=== PATIENT | female | born 1950 | race Caucasian/White ===

== ENCOUNTER 2017-12-13 12:08 | Emergency (ER) | payer MEDICARE ==
--- NOTE | 2017-12-13 14:00 | RAD ---
HISTORY: Fall, second toe pain COMPARISONS: January 19, 2012 VIEWS: 3, Frontal, lateral, and oblique views of the left foot FINDINGS: BONE DENSITY: There is diffuse osteopenia. BONES: There is no displaced fracture. There is postsurgical change to the head of the second metatarsal. JOINTS: There is advanced osteoarthrosis of the first MTP joint and third MTP joint with osteoporosis of the interphalangeal joints. ALIGNMENT: There is no dislocation. SOFT TISSUES: There is soft tissue swelling of the forefoot. OTHER FINDINGS: None. IMPRESSION: 1. OSTEOPENIA. 2. OSTEOARTHRITIS. 3. NO ACUTE OSSEOUS INJURY. THE DEGREE OF OSTEOPENIA MAY MAKE A NONDISPLACED FRACTURE RADIOGRAPHICALLY OCCULT. IF SYMPTOMS PERSIST, RECOMMEND REPEAT IMAGING.
[2017-12-13 14:57] VITALS: BP 157/84
--- NOTE | 2017-12-13 18:20 | ED ---
Lower Extremity - HPI Summary HPI Summary: Patient is a 67-year-old female who presents emergency department for left foot pain times one week. Patient states she fell and twisted her foot about 8 days ago and has had pain since. She also notes some redness and swelling to her left foot. No associated symptoms of fever, chills, nausea, vomiting. Denies history of gout. Symptoms are mild in severity. Touching the affected area makes symptoms worse. Rest makes symptoms better. - History of Current Complaint Chief Complaint: EDExtremityLower Stated Complaint: LT FOOT INJURY Time Seen by Provider: 12/13/17 12:51 Hx Obtained From: Patient, Family/Pet Caretaker Pain Intensity: 7 Pain Scale Used: 0-10 Numeric - Allergies/Home Medications Allergies/Adverse Reactions: Allergies Allergy/AdvReac Type Severity Reaction Status Date / Time bee venom protein (honey bee) Allergy Anaphylatic Verified 12/13/17 12:33 Shock cephalexin [From Keflex] Allergy Swelling Verified 12/13/17 12:33 phenobarbital Allergy Swelling Verified 12/13/17 12:33 phenytoin [From Dilantin] Allergy Anaphylatic Verified 12/13/17 12:33 Shock PMH/Surg Hx/FS Hx/Imm Hx Previously Healthy: Yes Respiratory History: Reports: Hx Asthma, Hx Chronic Obstructive Pulmonary Disease (COPD) Musculoskeletal History: Reports: Hx Back Problems, Other Musculoskeletal History - surgeries to foot Sensory History: Reports: Hx Contacts or Glasses - not with her Opthamlomology History: Reports: Hx Contacts or Glasses - not with her Neurological History: Reports: Hx Seizures, Other Neuro Impairments/Disorders - brain aneurysm, post clipping, back surgeries Psychiatric History: Reports: Other Psychiatric Issues/Disorders - OCD - Surgical History Surgery Procedure, Year, and Place: brain aneurysm . back and foot surgery Infectious Disease History: No Infectious Disease History: Denies: Traveled Outside the [place] in Last 30 Days - Family History Family History: NON CONTRIBUTORY - Social History Occupation: Disabled Lives: With Family Alcohol Use: Occasionally Alcohol Amount: states 2 beers/day Substance Use Type: Reports: None Smoking Status (MU): Heavy Every Day Tobacco Smoker Type: Cigarettes Amount Used/How Often: states 1 pk/day, started at age 14 Review of Systems Constitutional: Negative Negative: Fever, Chills Positive: Other - left foot pain, redness and swelling All Other Systems Reviewed And Are Negative: Yes Physical Exam Triage Information Reviewed: Yes Vital Signs On Initial Exam: Initial Vitals Temp Pulse Resp BP Pulse Ox 97.4 F 87 18 149/66 95 12/13/17 12:13 12/13/17 12:13 12/13/17 12:13 12/13/17 12:13 12/13/17 12:13 Vital Signs Reviewed: Yes Appearance: Positive: Well-Appearing - Patient sitting on chair no acute distress. Daughter present. Skin: Positive: Warm, Dry Head/Face: Positive: Normal Head/Face Inspection Eyes: Positive: Normal, EOMI Neck: Positive: Supple Musculoskeletal: Positive: Other - Mild diffuse edema noted to the dorsum of the left foot with light erythema over the lateral aspect. Painful to palpation. No calf pain or swelling. No proximal knee pain. Full range of motion at the ankle. No overlying wounds, induration, ulcerations foot. Neurological: Positive: Normal, CN Intact II-III Psychiatric: Positive: Affect/Mood Appropriate Diagnostics - Vital Signs Vital Signs Temp Pulse Resp BP Pulse Ox 12/13/17 14:56 98.8 F 75 16 157/84 97 12/13/17 12:13 97.4 F 87 18 149/66 95 - Laboratory Lab Statement: Any lab studies that have been ordered have been reviewed, and results considered in the medical decision making process. Lower Extremity Course/Dx - Course Course Of Treatment: Patient presenting to the evaluation of the foot injury that occurred about one week ago. X-ray shows arthritic changes without definitive fracture, reading per radiology. On exam she does appear to have a mild cellulitis to her foot. Will start on Keflex. Advised to elevate and apply warm compresses to foot. Close follow-up with PCP for recheck. To return to the ER for increased redness, swelling, pain, fever, vomiting. Patient understands and agrees with plan. - Diagnoses Differential Diagnosis/HQI/PQRI: Positive: Arthritis, Burn, Bursitis, Cellulitis , Fracture (Closed), Gout, Sprain, Strain Provider Diagnoses: Cellulitis Discharge - Sign-Out/Discharge Documenting (check all that apply): Patient Departure - Discharge Plan Condition: Good Disposition: HOME Prescriptions: Amoxicillin/Clavulanate TAB* [Augmentin TAB 875*] 875 mg PO BID #20 tab Patient Education Materials: Cellulitis (ED) Referrals: Cody Arias MD [Primary Care Provider] - Additional Instructions: Call your PCP tomorrow to schedule a follow up appointment Take antibiotic as directed Elevated foot and apply warm compresses Return to ER for increased pain, fever, redness, increased pain - Billing Disposition and Condition Condition: GOOD Disposition: Home
== END 2017-12-13 14:55 | disposition home or self-care (01) ==
LOC: ED 12:08
DX: L03.116 Cellulitis of left lower limb (principal); Z88.8 Allergy status to other drugs, medicaments and biological substances; Z88.1 Allergy status to other antibiotic agents; Z91.030 Bee allergy status; F17.210 Nicotine dependence, cigarettes, uncomplicated
CPT/HCPCS: 99282

== ENCOUNTER 2018-03-17 10:30 | Observation (INO) | payer MEDICARE ==
[2018-03-17] MEDS ORDERED: NS 0.9% 1000 ML* 1,000 ML IV ONE (10:32)
--- NOTE | 2018-03-17 10:37 | ED ---
Neurological HPI - HPI Summary HPI Summary: Pt is a 67 y/o female brought in by EMS who presents to the ED s/p witnessed seizure. As per EMS, she has a seizure history and recently has been having more than usual. Pt was here 2 days ago with a seizure. As per son, she had a seizure in the bathroom, where she fell into the bathtub. Pt was able to ambulate after. As per EMS, pt was not alert afterwards. She does not want to be in the hospital and is upset. She denies any head injury, LOC, AVALOS, or dizziness. Pt took 2 Seroquil pills this morning, but hasnt normally been taking it recently. Pt is on Tegretol for her seizures. She denies any alcohol use. Pt is a level 5 caveat due to her post-ictal state. - History of Current Complaint Stated Complaint: AMS Hx Obtained From: Patient, Family/Tankerman - Son, EMS Onset/Duration: Sudden Onset, Started hours ago, Resolved Neurological Deficit Location: Generalized Pain Intensity: 0 Pain Scale Used: 0-10 Numeric Syncope Context: Witnessed Alleviating: Spontanious Resolution Related Hx: Seizure - Allergy/Home Medications Allergies/Adverse Reactions: Allergies Allergy/AdvReac Type Severity Reaction Status Date / Time bee venom protein (honey bee) Allergy Anaphylatic Verified 03/17/18 10:36 Shock cephalexin [From Keflex] Allergy Swelling Verified 03/17/18 10:36 phenobarbital Allergy Swelling Verified 03/17/18 10:36 phenytoin [From Dilantin] Allergy Anaphylatic Verified 03/17/18 10:36 Shock Home Medications: Home Medications ALPRAZolam TAB* [Xanax TAB*] 0.25 mg PO TID PRN 03/17/18 [History Confirmed ] Amitriptyline TAB* [Elavil TAB*] 100 - 200 mg PO BEDTIME MDD 200 mg 03/17/18 [ History Confirmed 03/17/18] EPINEPHrine [Epipen] 0.3 mg IM ONCE PRN 03/17/18 [History Confirmed 03/17/18] Mirtazapine TAB* [Remeron TAB*] 15 mg PO BEDTIME PRN 03/17/18 [History Confirmed 03/17/18] Naproxen [Naproxen 375 mg tab] 375 mg PO BID WITH MEALS 03/17/18 [History Confirmed 03/17/18] QUEtiapine TAB* [Seroquel 300 MG TAB*] 400 mg PO BEDTIME 03/17/18 [History Confirmed 03/17/18] tiZANidine TAB* [Zanaflex TAB*] 2 mg PO TID PRN 03/17/18 [History Confirmed ] PMH/Surg Hx/FS Hx/Imm Hx Endocrine/Hematology History: Denies: Hx Sickle Cell Disease Cardiovascular History: Reports: Hx Aneurysm - brain, 1989 Denies: Hx Hypertension, Hx Myocardial Infarction Respiratory History: Reports: Hx Asthma, Hx Chronic Obstructive Pulmonary Disease (COPD) Musculoskeletal History: Reports: Hx Back Problems, Other Musculoskeletal History - surgeries to foot Sensory History: Reports: Hx Contacts or Glasses - not with her Opthamlomology History: Reports: Hx Contacts or Glasses - not with her Neurological History: Reports: Hx Seizures, Other Neuro Impairments/Disorders - brain aneurysm, post clipping, back surgeries Psychiatric History: Reports: Other Psychiatric Issues/Disorders - OCD - Surgical History Surgery Procedure, Year, and Place: brain aneurysm . back and foot surgery Infectious Disease History: No Infectious Disease History: Denies: Traveled Outside the [place] in Last 30 Days - Family History Known Family History: Positive: Cardiac Disease - Social History Alcohol Use: Daily Alcohol Amount: states 2 beers/day Hx Substance Use: No Substance Use Type: Reports: None Hx Tobacco Use: Yes Smoking Status (MU): Heavy Every Day Tobacco Smoker Type: Cigarettes Amount Used/How Often: states 1 pk/day, started at age 14 Review of Systems Negative: Fever Neurological: Other - seizure, NEGATIVE: dizziness Negative: Headache All Other Systems Reviewed And Are Negative: No Physical Exam - Summary Physical Exam Summary: Appearance: Well appearing, no pain distress Skin: warm, dry, reflects adequate perfusion Head/face: normal Eyes: EOMI, LOCO ENT: mucous membranes moist, no tongue injuries Neck: supple, non-tender Respiratory: CTA, breath sounds present Cardiovascular: RRR, pulses symmetrical Abdomen: non-tender, soft, no incontinence Bowel Sounds: present Musculoskeletal: normal, strength/ROM intact Neuro: confusion, sensory motor intact, alert and oriented to person GCS: 14 Triage Information Reviewed: Yes Vital Signs On Initial Exam: Initial Vitals Temp Pulse Resp BP Pulse Ox 98.4 F 80 16 159/80 95 03/17/18 10:33 03/17/18 10:33 03/17/18 10:33 03/17/18 10:33 03/17/18 10:33 Vital Signs Reviewed: Yes Diagnostics - Vital Signs Vital Signs Temp Pulse Resp BP Pulse Ox 03/17/18 10:33 98.4 F 80 16 159/80 95 - Laboratory Result Diagrams: 03/17/18 10:41 03/17/18 10:40 Lab Statement: Any lab studies that have been ordered have been reviewed, and results considered in the medical decision making process. - CT Brain CT CT Interpretation Completed By: Radiologist - 1. NO ACUTE INTRACRANIAL PATHOLOGY. 2. EVIDENCE OF CRANIOTOMY WITH PREVIOUS ANEURYSM REPAIR. ED physician reviewed radiology report. - EKG 11:12 Cardiac Rate: NL - 76 bpm EKG Rhythm: Sinus Rhythm ST Segment: Normal Summary of EKG Findings: Nl axis, nl intervals 11:17 Cardiac Rate: NL - 70 bpm EKG Rhythm: Sinus Rhythm ST Segment: Normal Summary of EKG Findings: Nl axis, nl intervals NIH Scale - NIH Scale Level of Consciousness: Alert/Keenly Responsive Ask Patient the Month and His/Her Age: Neither Correct/Aphasic Ask Pt to Open/Close Eyes and Brim Raiser/Release Non-Paretic Hand: Both Correctly Best Gaze (Only Horizontal Eye Movement): Normal Visual Field Testing: No Visual Loss Facial Paresis-Pt to Smile & Close Eyes or Grimace Symmetry: Normal/Symmetrical Motor Function - Right Arm: No Drift-Holds 10 Seconds Motor Function - Left Arm: No Drift-Holds 10 Seconds Motor Function - Right Leg: No Drift-Holds 10 Seconds Motor Function - Left Leg: No Drift-Holds 10 Seconds Limb Ataxia-Must be out of Proportion to Weakness Present: Absent Sensory (Use Pinprick to Test Arms/Legs/Trunk/Face): Normal Best Language (Describe Picture, Name Items): No Aphasia Dysarthria (Read Several Words): Normal Extinction and Inattention: No Abnormality Total Score: 2 Course/Dx - Course Course Of Treatment: Patient with a history of seizures which seemed to have increased in frequency lately. She has had prolonged postictal phases. She remains ictal here. The only medication listed for possible seizures Tegretol. A level was obtained. I discussed the case with neurology and loaded the patient with YR Free. An EEG was performed here. They have elected to admit the patient for further. - Differential Dx Differential Diagnoses Neuro: Positive: Hemorrhage, Metabolic Abnormality, Seizure Disorder - Diagnoses Provider Diagnoses: Generalized epilepsy - Physician Notifications Discussed Care Of Patient With: Nik Grant Time Discussed With Above Provider: 11:18 Instructed by Provider To: Other - Dr. Grant said to admit the pt. At 11:[address] Arguello, who is not accepting the pt for admission yet, as per Dr. Grant's advise. At 12:00 Dr. Arguello accepts pt for admission. Discharge - Sign-Out/Discharge Documenting (check all that apply): Patient Departure - Admit - Discharge Plan Condition: Stable Disposition: ADMITTED TO [facility] - Billing Disposition and Condition Condition: STABLE Disposition: Admitted to [facility] - Attestation Statements Document Initiated by Khanhibe: Yes Documenting Scribe: Alexandria Rose Provider For Whom Khanhibe is Documenting (Include Credential): Sam Butler MD Scribe Attestation: IAlexandria, scribed for Sam Butler MD on 03/17/18 at 1800. Scribe Documentation Reviewed: Yes Provider Attestation: The documentation as recorded by the Alexandria ortiz accurately reflects the service I personally performed and the decisions made by me, Sam Butler MD
[2018-03-17] MEDS ORDERED: levETIRAcetam IV* 1,000 MG in NS 0.9% 100 ML* 100 ML IVPB ONE (10:38)
[2018-03-17 10:53] LABS: ABS Basophils 0 10^3/ul (0-0.2); ABS Eosinophils 0.3 10^3/ul (0-0.6); ABS Lymphocytes 1.1 10^3/ul (1.0-4.8); ABS Monocytes 0.5 10^3/ul (0-0.8); ABS Neutrophils 7.3 10^3/ul (1.5-7.7); ABS Nucleated RBC 0 10^3/ul; Eosinophil % 3.7 % (0-6); Hematocrit 39 % (35-47); Hemoglobin 13.5 g/dl (12.0-16.0); Lymphocyte % 12.2 % (25-47); Mean Corpuscular HGB Conc 35 g/dl (31-36); Mean Corpuscular Hemoglobin 33 pg (27-31); Mean Corpuscular Volume 94 fL (80-97); Mean Platelet Volume 7.3 fL (7.4-10.4); Nucleated Red Blood Cells % 0; Platelet Count 257 10^3/ul (150-450); Red Blood Count 4.13 10^6/ul (4.00-5.40); Red Cell Distribution Width 14 % (10.5-15); White Blood Count 9.2 10^3/ul (3.5-10.8)
[2018-03-17 11:00] LABS: INR 0.92 (0.77-1.02)
[2018-03-17 11:13] LABS: EGFR Non-African American 86.6 (>60)
[2018-03-17] MEDS ORDERED: Mirtazapine TAB* 15 MG PO PRN (14:04)
[2018-03-17] MEDS ORDERED: Albuterol HFA INHALER* 8 gm MDI INH PRN (14:04)
[2018-03-17] MEDS ORDERED: ALPRAZolam TAB* 0.25 MG PO PRN (14:13)
[2018-03-17] MEDS ORDERED: tiZANidine TAB* 2 MG PO PRN (14:14)
[2018-03-17] MEDS ORDERED: Mouth Piece, Nicotine* 1 EACH CARTRIDGE INH ONE (15:00)
[2018-03-17] MEDS: Heparin VIAL(*) 5000 UNITS/ML VIAL (FIVE THOUSAND) SUBCUT SCH ×2 (15:59→22:13)
[2018-03-17] MEDS: Nicotine Inhaler* 10 MG AMP INH PRN (15:59)
[2018-03-17 16:06] LABS: Urine Appearance Cloudy; Urine Blood 2+ (Negative); Urine Color Amber; Urine Ketones Trace (Negative); Urine Protein Negative (Negative); Urine Red Blood Cell 2+(6-10/hpf) (Absent); Urine Specific Gravity 1.019 (1.010-1.030); Urine Urobilinogen Negative (Negative); Urine White Blood Cell 2+(11-20/hpf) (Absent)
--- NOTE | 2018-03-17 18:44 | CONS ---
NEUROLOGY CONSULTATION NOTE: DATE OF CONSULT: 03/17/18 CONSULTING PROVIDER: Sam Butler MD REASON FOR CONSULT: Neurology was consulted by Dr. Sam Butler at 11:17 a.m. to evaluate the patient for new-onset seizures. Upon review of the history, the patient has longstanding history of epilepsy. I informed Dr. Arguello to hold off on the admission until further evaluated by myself to make sure the patient is not in non-convulsive status epilepticus and may require higher level of care. After my evaluation, Dr. Arguello was then contacted at 1300 to proceed with the admission. CHIEF COMPLAINT: Confusion. HISTORY OF PRESENT ILLNESS: Ms. Jessi Disla is a 67-year-old female with history of cerebral aneurysm presumably in the right MCA, status post right metal clips in 1989 at [facility] by Dr. Egan, who has had history of epilepsy since as early as 2013. The patient was extensively evaluated by Dr. Herrera in 2014, who recommended switching her from Keppra to Tegretol to prevent any psychiatric exacerbation related to Keppra given her history of depression and OCD. The patient's family stated that Ms. Disla has been doing well since then and has not had any recurrent seizures until recently. The history was mostly obtained by the patient's daughter, Xochilt, who unfortunately was hospitalized at [facility] and currently in the ICU and just recently was extubated this morning. Xochilt was still able to provide me with history over the phone. I also obtained history from Xochilt's partner, who was at bedside with Ms. Disla. According to EMS, there was documentation that the patient may have taken double dose of Seroquel this morning. She typically takes 400 mg daily. . According to Xochilt's partner, the patient woke up at approximately 7:30 a.m. She went to the bathroom. He knew something was off when she did not close the door after going into bathroom. She got off the toilet and then went into the bathtub where she fell. She did hit her head. She never lost consciousness. She was confused. She was disoriented with time and location. She kept repeating herself. She was last seen normal actually by our area intelligence technician last night at approximately 2200 when the patient was with her daughter Xochilt in the ICU. There were no reported convulsions. There was no tongue biting or urinary/bowel incontinence. The patient had a similar episode of confusion on 03/15/18 where she was brought in the ER. At that time, her carbamazepine level was checked and it was less than 2. According to Xochilt, the patient has been excessively sleeping over the last 3 days and that may have triggered her to forget taking her carbamazepine. Currently, the patient is disoriented, but follows commands. She is concerned about her daughter, who is in the ICU. I reviewed the [employer] where the patient did not have any encounters. She is clearly not following with any neurologists. She apparently saw Dr. Hensley in the past, but stopped following up, but I do not have any records of that. She used to take phenobarbital and phenytoin, but stopped due to an allergic reaction. At baseline, the patient is extremely sharp and her memory is intact. She has not operated a vehicle for years since her last DUI. She used to be a heavy drinker for over 20 years, but over the last few years she consumes alcohol mostly in the beginning of the month, at max 4 beers a day for a few days. Otherwise, she drinks 1-2 times a week. There is no history of drug use. The patient does live alone. She had a CT of the head without contrast completed on 03/17/18. There was no evidence of acute intracranial abnormalities on this CT. There is evidence of craniotomy with previous aneurysm repair on the right. There are aneurysm clips noted in the region of the sylvian fissure and prepontine cistern. Laboratory data: WBC 9.2, hemoglobin 13.5, hematocrit 39, platelet count 257. INR 0.92. Sodium 138, potassium 4.1, chloride 109, carbon dioxide 24, anion gap is 5, BUN of 22, creatinine of 0.68, lactic acid 0.5, magnesium 2.0. Alkaline phosphatase 129. TSH is 1.74. Carbamazepine level 9. Serum alcohol less than 10. According to Xochilt's partner, the patient is still the same as she was found this morning. She did not improve with the Keppra loading dose that was given in the ED, 1000 mg IV x1. The patient is still confused and disoriented. A stat EEG was ordered. PAST MEDICAL HISTORY: Aneurysm clipping, the clippings are not MRI compatible according to Xochilt; OCD; anxiety; depression; GERD; insomnia; and seizures. The patient also has headaches as well as muscle spasms. The patient has history of COPD. She quit smoking years ago. PAST SURGICAL HISTORY: Back surgery, foot surgery, carpal tunnel repair. She has history of breast biopsy and hysterectomy. FAMILY HISTORY: Her mother from a motor vehicle accident. Her father of a heart attack. She has a sister and a brother, who both suffer from cerebral aneurysms, one of them passed due to subarachnoid hemorrhage. SOCIAL HISTORY: The patient reported cessation of tobacco use just over the last 2 years, but she did smoke approximately half-a-pack a day for over 50 years. She lives alone. Her surrogate decision maker is her daughter. REVIEW OF SYSTEMS: Limited due to the patient's cooperation, but a 14-point review of systems was obtained and otherwise negative except for as mentioned in the HPI. PHYSICAL EXAM: Vitals: Temperature 98.7, pulse of 75, respirations of 16, oxygen saturation of 95%, blood pressure of 164/80. General: Disheveled appearing elderly female, who appears older than stated age, who is confused. Head: Normocephalic, atraumatic. Eyes: Conjunctivae/corneas are clear. Neck is supple and symmetrical with no carotid bruits. Negative Brudzinski and Kernig signs bilaterally. No nuchal rigidity. Lungs: She has expiratory wheezing in bibasilar area. Nonlabored breathing though. Cardiovascular: Regular rate and rhythm with normal S1, S2. Extremities: Normal range of motion with no cyanosis. She has toe deformities in the left with hammertoe on the left great toe. Skin: No skin lesions or lacerations. Psych: Affect is broad and normal mood. Due to the confusion, she is difficult to establish a rapport. Neurological Examination: Mental Status: Awake, alert, and oriented to person, but not place or time. She has some mild perseverative speech. She has psychomotor slowing. She thinks the president is Richard. She was unable to tell me where she is, but knew that she is in the hospital and she kept repeating she is in [facility]. Cranial Nerves: Normal confrontation testing bilaterally. Pupils are mid range and reactive to light. Sensation is intact on the forehead, cheeks, and jaw region. She has no facial droop or facial asymmetry. She is able to hear throughout the history process. Symmetrical palatal elevation. Normal strength against resistance. Tongue is symmetrical and midline with no atrophy or fasciculation. Motor: No abnormal movements. No pronator drift. She can move all 4 extremities to command symmetrically. Reflexes: Right/left, brachioradialis trace/trace, biceps trace/trace, triceps trace/trace, patella absent/absent, ankle absent/absent, plantar flexor/flexor. Sensation is intact to light touch, pinprick, and temperature throughout except for she has a distal to proximal sensory gradient demarcated at the mid shins bilaterally. She has significantly reduced vibration at 4 seconds on the right and 5 seconds on the left, although I am not quite sure how accurate that is given her disorientation. The proprioception at the great toes is intact. Coordination: Slow, but normal [id number] testing. Gait was not assessed due to mentation. ASSESSMENT AND RECOMMENDATIONS: Ms. Jessi Disla is a 67-year-old female with history of cerebral aneurysm, status post clipping in 1989, who has diagnosis of depression, obsessive-compulsive disorder, headaches, and seizures. She was last seen prior to this month in December of [address] Herrera for breakthrough seizures, but that was related to medication noncompliance. She was seen in the ED recently 2 days ago for a breakthrough seizure and her carbamazepine level was less than 2. She was provided with carbamazepine and was discharged home, but presents today with increasing confusion. Carbamazepine level is therapeutic. The patient was loaded with levetiracetam with no significant improvement in her confusion. 1. Acute encephalopathy manifesting as hypoactive delirium - I suspect this is related to a toxic encephalopathy given her list of medications, which includes Xanax, tizanidine, mirtazapine, amitriptyline which she takes 200 mg at bedtime , oxycodone, and quetiapine for which she may have taken 2 doses this morning. I am not quite sure where this history was obtained from in regards to the double dose of quetiapine, but this is what was presented by EMS. However, complex partial seizures leading to a postictal state cannot be entirely excluded. I was mainly concerned about possible nonconvulsive seizures and therefore I ordered a stat EEG. The study is currently being done in the ER. 2. 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 I recommend continuing the same home dose of carbamazepine 200 mg p.o. twice daily until we obtain a repeat trough level. She will most likely require an increase dose of carbamazepine 200 mg in the morning and 400 mg at night. I would not continue the Keppra at this point given her increase of mood disturbances that can be related to the side effects of Keppra. 3. Polypharmacy - we will need to either consult with Psychiatry or discuss her medication list with her primary care provider or a prescribing physician. In someone with seizures, amitriptyline can definitely lower the seizure threshold. In addition, out of all the tricyclics, amitriptyline is said to have the most anticholinergic side effects and to be the most likely to produce delirium. Therefore, I recommend decreasing the dose to 100 mg for now and to slowly wean her off this medication as an outpatient. In addition, we can most likely continue the quetiapine dose starting tomorrow since she may have taken an extra dose. An EKG today showed a normal sinus rhythm with a QTc of 449. There has been a slight prolongation in the QTc from the EKG obtained 2 days ago. Defer further management to the primary team. I do not suspect the patient has any infectious or electrolyte imbalance contributing to her symptoms. She does not have any lateralizing neurological deficits to suspect a stroke. She cannot undergo any MRI testing, but if her symptoms persist, I recommend repeating a CT head without contrast to evaluate for any intracranial abnormalities. Please also obtain a urinalysis to evaluate for any urinary tract infection. Dr. Rica Mcneal will be covering the neurology service starting tomorrow. I will sign out to her today. TIME SPENT: I spent a total of 75 minutes and greater than 50% was spent directly reviewing the medical chart, obtaining history, examining the patient, education and counseling, and discussing the treatment plan with the patient, her daughter Xochilt, and Xochilt's partner. I also discussed these recommendations with Dr. Arguello. [id number]/[facility] #: [id number] PHILLY
--- NOTE | 2018-03-17 19:34 | HP ---
CC: Dr. Arias * [facility] MEDICINE HISTORY AND PHYSICAL: DATE OF ADMISSION: 03/17/18 PRIMARY CARE PHYSICIAN: Dr. Arias. ATTENDING PHYSICIAN: Oma Arguello MD * (dictation provided by Bisi Templeton NP ). CHIEF COMPLAINT: Altered mental status, question seizure. HISTORY OF PRESENT ILLNESS: Ms. Disla is a 67-year-old female with a past medical history of seizure disorder; depression; chronic back pain, on chronic narcotic therapy; brain aneurysm, status post clipping; and COPD with continued smoking, who presents to the hospital today with concern for altered mental status and possible seizure. Ms. Disla continues to have some confusion and is not able to provide much in the way of detail for the H and P and this was provided from her son-in- law, who is at the bedside today. Per the report, Ms. Disla normally lives alone, but she has been staying with the son-in-law since her daughter is ill and in the hospital. The patient was seen to be normal yesterday; however, this morning on awaking, the son-in-law noticed that she was confused and that she seemed to have a hard time answering questions. He saw her in the bathroom with the door open which is very unusual for her, she seemed confused and at one point fell. He notes that a couple of days ago he saw her seeming to be having a seizure. There was no tremor or shaking noted , but he did say that the patient was repeatedly saying the word "mamma". He also noted that she was doing that again this morning and that made him question whether or not possibly she was having a seizure. The patient was transported to the hospital via EMS. There is no report of other complaints recently from either the patient or the son-in-law. No report of fever, chills , chest pain, shortness of breath, cough, nausea, vomiting, diarrhea, abdominal pain. There is report from EMS that at the time of their arrival, there was a question of whether or not the patient had taken an extra dose of her quetiapine accidentally. Of note, the patient was also seen in the emergency room on 03/15/18 with concern for altered mental status and possible seizures but this was not mentioned by the son-in-law during my interview. In the emergency room, Ms. Disla had a CT brain, which showed no acute abnormality. Her labs were unremarkable with no evidence of infection or metabolic abnormality. Vital signs were stable. Although she improved in terms of her mentation and was able to name the president, she remained confused and plans are for observation in the hospital. PAST MEDICAL HISTORY: 1. Depression. 2. Seizure disorder. 3. History of brain aneurysm with clippings x2. 4. OCD. 5. History of COPD. 6. GERD. PAST SURGICAL HISTORY: 1. History of back surgery. 2. History of a foot surgery. 3. Carpal tunnel surgery. 4. History of brain aneurysm clippings x2. 5. History of breast biopsy. 6. History of hysterectomy. MEDICATIONS: 1. Quetiapine 400 mg p.o. at bedtime. 2. Carbamazepine ER 200 mg p.o. b.i.d. 3. Desvenlafaxine 50 mg p.o. daily. 4. Epinephrine 0.3 mg IM as needed. 5. Amitriptyline 100 to 200 mg p.o. at bedtime. 6. Tizanidine 2 mg p.o. t.i.d. p.r.n. 7. Alprazolam 0.25 mg p.o. t.i.d. p.r.n. 8. Albuterol inhaler 2 puffs inhaled q.4 hours p.r.n. 9. Oxycodone SR 40 mg p.o. b.i.d. 10. Omeprazole 40 mg p.o. daily. 11. Mirtazapine 15 mg p.o. b.i.d. p.r.n. 12. Naproxen 375 mg p.o. b.i.d. with meals. ALLERGIES: To BEE VENOM, CEPHALEXIN, PHENOBARBITAL, and PHENYTOIN. FAMILY HISTORY: There is report that mother related to MVA and father related to heart attack. SOCIAL HISTORY: The patient is a continued long-term smoker. She reports she drinks about 3 to 4 beers per night. No report of drug use. She lives alone, but her daughter, Xochilt, will be the healthcare proxy. REVIEW OF SYSTEMS: A 14-point review of systems was attempted with Ms. Disla and at this point, all those not mentioned above were negative. PHYSICAL EXAMINATION GENERAL: Ms. Disla is lying in the bed. Her son-in-law is at the bedside. She is in no acute distress. VITAL SIGNS: Temperature 98.7, pulse rate 75, respiratory rate 16, O2 saturation 95% on room air, blood pressure 164/80. LUNGS: Clear to auscultation bilaterally with no accessory muscle use and good aeration. HEART: S1, S2. No murmur, rub, or gallop and regular. ABDOMEN: Soft, nontender with bowel sounds positive x4. EXTREMITIES: No cyanosis or edema. NEURO: She is alert. She appears hesitant or quiet in terms of answering questions, but is able to answer most of them appropriately. She is oriented x3. She states she is at [facility] and that Andreas Boucher is our president and then she states "I hate Sander." She moves all extremities equally. There is no facial asymmetry or focal weakness. Extraocular movements are intact. There is no ataxia noted with upper or lower extremities. SKIN: Intact. DIAGNOSTIC STUDIES/LAB DATA: WBC 9.2, hemoglobin 13.5, hematocrit 39, platelet count 257,000. INR 0.92. Sodium 138, potassium 4.1, chloride 109, serum bicarbonate 24, BUN 22, creatinine 0.68, glucose 123, lactic acid 0.5. TSH 1.74. Serum alcohol level is less than 10. Carbamazepine level is 9.0. EKG shows sinus rhythm with heart rate about 70 and no evidence of ischemia. The CT of the brain is read as follows: "No acute intracranial pathology. Evidence of craniotomy with previous aneurysm repair." ASSESSMENT AND PLAN: Ms. Disla is a 67-year-old female with a past medical history of chronic pain, on narcotic therapy; depression; seizure disorder with history of craniotomy for aneurysm clipping, who presents today to the hospital with concern for altered mental status. Our plans are for observation in the hospital for the followin. Altered mental status. This may be related to being in a post-ictal state. The patient has report of possible seizures at home. I did get a verbal report from Dr. Grant that EEG obtained in the ED does not show epileptiform discharges. Dr. Grant had recommended Keppra x1 in the ED, but he does not at this point want to continue with that because he feels that uncontrolled seizures are less likely than possible toxic metabolic encephalopathy related to her polypharmacy. In terms of that, I do agree that she is on multiple high dose agents that could contribute to her altered mental status and our plans will be to make an attempt to decrease the tizanidine and amitriptyline with recommendations to continue to wean down these medications as appropriate outpatient. I am also planning to hold her dose of Seroquel tonight as there is a question of whether or not she took 2 doses this morning accidentally. She shows no evidence of infection. Transient ischemic attack could be on the differential for this patient, but seems less likely. She has had no evidence and no report of neurological deficit, but we will monitor on telemetry. MRI is not possible given the history of aneurysm clips. CT brain is negative. 2. Chronic pain. Continue oxycodone SR. The dose was confirmed via I-STOP. We will wean tizanidine down to b.i.d. dosing as well as amitriptyline down to 100 mg at night only. 3. Depression. Continue Seroquel and Pristiq with a lower dose of amitriptyline. I recommend that these medications be adjusted as tolerated outpatient. 4. Anxiety. Continue alprazolam. We will continue current dose given concern for seizures. 5. Seizure disorder. Plan to continue the Tegretol at [address] Grant did not want to start an additional agent tonight. 6. Nicotine use. Plan to have nicotine replacement therapy available p.r.n. 7. Alcohol use. The patient's son-in-law confirms that she drinks about 3 beers per night. We will be monitoring her with neurological checks q.4 hours and can add a [place] protocol if necessary. Her alcohol level is less than 10. 8. Code status is full code. 9. Disposition: To telemetry floor. TIME SPENT: Approximately 60 minutes were spent on the admission of this patient, more than half the time spent with the patient at the bedside reviewing the events leading up to this hospitalization, performing the physical examination, and reviewing the plan of care. BISI TEMPLETON NP [id number]/[facility] #: [id number] PHILLY
--- NOTE | 2018-03-17 19:52 | CONS ---
CONSULTATION REPORT: ADDENDUM: ASSESSMENT AND PLAN: The patient has history of peripheral neuropathy and frequent falls. The falls are likely due to the neuropathy. 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 An EMG/nerve conduction study to check the severity of the neuropathy can be done as an outpatient. I have ordered vitamin B12 level and TSH, but are not yet obtained, to rule out any other metabolic causes. [id number]/[facility] #: [id number] [facility] HOSPITALGayle
[2018-03-17] MEDS: Acetaminophen TAB* 325 MG PO PRN (20:20)
[2018-03-17] MEDS: carBAMazepine ER TAB(*) 200 MG PO SCH (20:21)
[2018-03-17] MEDS: oxyCODONE SR TAB(*) 40 MG TAB.SR PO SCH (20:21)
[2018-03-17] MEDS ORDERED: ALPRAZolam TAB* 0.25 MG PO SCH (21:00)
[2018-03-17] MEDS ORDERED: QUEtiapine TAB* 300 MG PO SCH (21:00)
[2018-03-17] MEDS ORDERED: Amitriptyline TAB* 100 MG PO SCH (21:00)
[2018-03-17] MEDS ORDERED: tiZANidine TAB* 2 MG PO SCH (21:00)
--- NOTE | 2018-03-18 02:52 | EEG ---
ELECTROENCEPHALOGRAPHY REPORT: DATE OF STUDY: 03/17/18 ORDER PROVIDER: Nik Grant MD MEDICATIONS: 1. Amitriptyline. 2. Quetiapine. 3. Tizanidine. 4. Mirtazapine. 5. Carbamazepine. INDICATION: Mrs. Jessi Disla is a 67-year-old female with history of right intracranial aneurysm, status post craniotomy and clipping, who has history of localization-related epilepsy, who presented with increased confusion this morning. This EEG was obtained to evaluate for epileptiform abnormalities or electrographic seizures. The duration of the recording was from [id number]. STATE: drowsy BACKGROUND: The background lacked organization or clearly defined anterior- posterior voltage and frequency gradients. There are no discernible posterior dominant rhythm, instead the background consisted of mixed frequency slowing in the delta and theta range. At a time, the delta slowing became sharply contoured and took on the triphasic morphology. There was emergence of some faster frequency with verbal and tactile stimulation. There were rare diffuse low suppression voltage of the background lasting for 0.5-1 second, mostly during drowsy state. There were intermittent, occasional, epileptiform discharges with the morphology of spike and slow-wave occurring occasionally and focally mostly in the right temporal region, maximal at A2 and T4. There were no electrographic seizures. There was nearly continuous higher amplitude intermixed alpha, beta, theta, and delta frequency in the right temporal region, maximal at A2, T4, which is likely due to an underlying breach rhythm. Hyperventilation and photic stimulation were not performed. There were no clear electrographic seizures. CLINICAL IMPRESSION: This is an abnormal EEG obtained in a patient with predominantly drowsy state that showed the followin. Diffuse slowing of the background with retained reactivity. 2. Prominent high amplitude intermixed frequencies in the right temporal region suggestive of a superimposed focal neuronal dysfunction and breach rhythm in that region. 3. Intermittent, occasional, epileptiform discharges with spike and slow-wave morphology emanating from the right temporal region. These findings are suggestive of a nonspecific moderate diffuse encephalopathy with superimposed focal neuronal dysfunction and increased epileptogenic potentials emanating from the right temporal region. The suppression of the background can also be seen in the setting of nonspecific encephalopathy or most likely postictal state. Clinical correlations recommended. [id number]/[facility] #: [id number] [facility]
[2018-03-18] MEDS: Acetaminophen TAB* 325 MG PO PRN (03:09)
[2018-03-18] MEDS: Heparin VIAL(*) 5000 UNITS/ML VIAL (FIVE THOUSAND) SUBCUT SCH (05:15)
[2018-03-18] MEDS ORDERED: Nicotine PATCH 14 MG/24 HR* PATCH TRANSDERM SCH (09:00)
[2018-03-18] MEDS ORDERED: Omeprazole CAP* 20 MG PO SCH (09:00)
[2018-03-18] MEDS: oxyCODONE SR TAB(*) 40 MG TAB.SR PO SCH (10:07)
[2018-03-18] MEDS: carBAMazepine ER TAB(*) 200 MG PO SCH (10:08)
[2018-03-18] MEDS: Nicotine Inhaler* 10 MG AMP INH PRN (10:15)
[2018-03-18 12:34] VITALS: BP 139/80
[2018-03-18] MEDS ORDERED: carBAMazepine TAB(*) 200 MG PO SCH (18:00)
[2018-03-18] MEDS ORDERED: QUEtiapine TAB* 100 MG PO SCH (21:00)
[2018-03-18] MEDS ORDERED: Nicotine Patch Removal NOTE PATCH OFF SCH (21:00)
--- NOTE | 2018-03-19 01:47 | PN ---
FOLLOWUP NOTE: DATE OF SERVICE: 03/18/18 REASON FOR CONSULTATION: Change in mental status and seizure. HISTORY: Jessi Disla is a 67-year-old woman with history of aneurysm repair in 1998 complicated by right frontotemporal encephalomalacia and epilepsy. She was seen by Dr. Grant in consultation yesterday for confusion in the setting of taking excessive Seroquel doses. She had recently been in the emergency room on 03/15/18 with a breakthrough seizure. Her carbamazepine level at that time was less than 2. She was given 3 mg of Ativan and a gram of levetiracetam. She was restarted on carbamazepine. She was readmitted to hospital with confusion after taking excessive Seroquel and her daughter being admitted for taking too much medication. She feels back to baseline at this time. She had a trough carbamazepine level, which was 5.6. Her non-trough was 9.0. She has a bag for her pills and takes them out once a day. She is worried they may not fit into a pill box. PHYSICAL EXAMINATION: On examination today, her temperature was 98.5 degrees Fahrenheit, her pulse was 77 and regular, respiratory rate was 16, saturation was 97%, blood pressure was 147/81. She had a regular cardiac rhythm. Her lungs were clear to auscultation. She was awake, alert, oriented. She has normal language, function, and adequate fund of knowledge. She had full extraocular movements with no nystagmus. Her facial expression was symmetric. There was no pronator drift. She had normal coordination with hxidop-af-qqtm and uaqs-wk-tyla movements. Her strength was full in her upper and lower extremities. Her Romberg was minimally wobbly. She was able to walk independently with an increased stance to and from her chair to the door. MAR: reviewed DIAGNOSTIC STUDIES/LAB DATA: Her CBC yesterday showed a white count of 9.2, hemoglobin and hematocrit were within normal limits as were platelets. Her metabolic panel showed an elevated BUN and creatinine ratio. Her glucose was normal at 123. Her alk phos was elevated at 129. Her urinalysis yesterday did show trace ketones, 2+ blood, positive nitrites, trace esterase, 2+ white blood cells and red blood cells, 1+ bacteria. The microbiology report is not back yet. She had a CT of her brain, which I reviewed directly, which does show evidence of previous aneurysm clipping and encephalomalacia in the right frontotemporal region. IMPRESSION AND PLAN: A 67-year-old woman with a history of aneurysm repair with encephalomalacia and course complicated by epilepsy and admission in the setting of encephalopathy. Given her trough level of carbamazepine at 5.6, I would increase it to 200 mg in the morning and 400 mg at night. In regards to her confusion, there appears to be overdose of medication. We talked about the importance of compliance and using a pill box to try to avoid errors. I agree with reduction of amitriptyline from 200 mg to 100 in the 67- year-old. She may need further reduction in the future. Education was provided. Her urinalysis is abnormal. No culture is back today. This will need to be followed. I will be in discussion with Dr. Arguello regarding this case. Please let us know if further neurologic input is needed. [id number]/[facility] #: [id number] MTDD
[2018-03-19] MEDS ORDERED: carBAMazepine ER TAB(*) 200 MG PO SCH (09:00)
--- NOTE | 2018-03-19 14:15 | DS ---
DISCHARGE SUMMARY: DATE OF ADMISSION: 03/17/18 DATE OF DISCHARGE: 03/18/18 ADMITTING PROVIDER: Bisi Templeton NP PRIMARY CARE PROVIDER: Cody Arias MD ATTENDING PHYSICIAN ON DAY OF DISCHARGE: Harjinder Keen MD CHIEF COMPLAINT: Altered mental status, question of seizure. PRINCIPAL DIAGNOSIS: Altered mental status in the setting of polypharmacy and unable to rule out seizure. HISTORY OF PRESENT ILLNESS AND HOSPITAL COURSE: Jessi Disla is a 67-year-old female with past medical history of seizure disorder; depression and chronic back pain, on high doses of chronic opioids; brain aneurysm, status post clipping; COPD with continued smoking, who presented with altered mental status and concern by family for a possible seizure. Please see [facility] for full details. Son-in-law provided the history. Mrs. Disla had been staying with the son-in-law and her daughter for last 2 weeks, as daughter was in and out of the hospital. She was noted to be confused and had some staring spells. She had left the bathroom door wide open. Within the last few days, she had repeatedly said the word "mamma" and morning of admission, she again did this. She would later report that the stress of seeing her daughter, who had just been intubated, was quite traumatic for her. She was referred to hospitalist service for observation admission and Dr. Grant of Neurology was consulted. The EEG in the emergency room did not show epileptiform activity. The working diagnosis was toxic metabolic encephalopathy related to polypharmacy, but of note her carbamazepine level was noted to be low on checking and Dr. Mcneal is recommending increasing this dosing from 200 twice a day to 200 in the morning and 400 at night. Her levels were 5.6 at 11 p.m. the night of admission. She also eventually was able to be obtained a urinalysis, which was positive for nitrites, 2+ blood, trace leukocyte esterase, 2+ wbc's, 1+ bacteria, and was empirically started on Macrobid while urine culture was pending. The morning of hospital day 2, she felt back to her baseline mental status and further medication reductions were suggested by both Neurology and hospitalist service. She should have a close followup with Dr. Arias. DISCHARGE MEDICATIONS: Include: 1. Albuterol 2 puffs inhaled q.4 hours p.r.n. 2. Xanax 0.25 mg p.o. t.i.d. p.r.n. 3. Amitriptyline 100 mg p.o. at bedtime (reduced from previous recorded range between 100 and 200 mg at bedtime). 4. Carbamazepine 200 mg in the a.m. and 400 mg in p.m. (increased from 200 twice a day). 5. Desvenlafaxine 50 mg p.o. daily (Pristiq). 6. EpiPen 0.3 mg IM p.r.n.. 7. Mirtazapine 15 mg p.o. at bedtime p.r.n. 8. Naproxen 375 mg p.o. b.i.d. 9. Nicotine patch 14 mg for 24 hours (new). 10. Macrobid 100 mg p.o. daily for 5 tabs (new). 11. Prilosec 40 mg p.o. daily. 12. Oxycodone sustained release (OxyContin 40 mg p.o. b.i.d.). 13. Quetiapine 400 mg p.o. bedtime. 14. Tizanidine (Zanaflex) 2 mg p.o. b.i.d. p.r.n. (reduced from 2 mg p.o. t.i.d. p.r.n.). FOLLOWUP: She is to follow up with Dr. Cody Arias within [address] Hensley within 1 month. Her urine culture should be followed on in case it is positive and not sensitive to Macrobid. TIME SPENT ON DISCHARGE: Forty-five minutes. [id number]/[facility] #: [id number] [facility]ITALGayle
== END 2018-03-18 12:55 | disposition home or self-care (01) ==
LOC: ED 10:30 → MEDTELE 13:56
PROVIDERS: ADMIT Internal Medicine; ATTEND Internal Medicine
DX: R41.82 Altered mental status, unspecified (principal); K21.9 Gastro-esophageal reflux disease without esophagitis; Z79.899 Other long term (current) drug therapy; G40.909 Epilepsy, unspecified, not intractable, without status epilepticus; F17.210 Nicotine dependence, cigarettes, uncomplicated; G89.29 Other chronic pain; Z79.891 Long term (current) use of opiate analgesic; H53.40 Unspecified visual field defects; F41.9 Anxiety disorder, unspecified
CPT/HCPCS: 36415; 70450; 80053; 80156; 80307; 80320; 81003; 81015; 82607; 83605; 83735; 84443; 84484; 85025; 85610; 87077; 87086; 87186; 93005; 95819; 96361; 96365; 99282; A9270-GY; G0378; G0480; J1644

== ENCOUNTER 2018-03-19 08:57 | Observation (INO) | payer MEDICARE, OTHER ==
--- NOTE | 2018-03-19 09:15 | ED ---
Neurological HPI - HPI Summary HPI Summary: A 67 y/o female brought in by ambulance presents to the ED s/p seizure activity. In the ED room the patient has a pulse of 85 BPM, O2 saturation of 97 % and blood pressure of 141/108. As per triage, "per EMS, pt had seizure lasting @ 15 minutes. arrives in post ictal state, confusion noted". According to the patient, she had a seizure. Patient did know her location, however, struggled with recalling the month. Patient noted it hurt to squeeze physician fingers during examination. Patient is on several medications. As per daughter and son-in-law, the patient was fine yesterday, however, she was not eating well. This morning after breakfast she wasn't feeling well, she took regular medications, then later on she had a seizure in the kitchen for about 30 seconds. They immediately called 911. Daughter noted that the patient is an occasional ETOH drinker and weekly smoker, however, she has not been engaging in those for the past week as she is trying to quit. - History of Current Complaint Chief Complaint: EDSeizure Stated Complaint: CONFUSED Time Seen by Provider: 03/19/18 09:01 Hx Obtained From: Patient Onset/Duration: Sudden Onset Timing: Intermittent Episodes Lasting: - 1 episode lasting 30 seconds Current Severity: None Number of Seizures: 1 Pain Intensity: 0 Pain Scale Used: 0-10 Numeric Character: Confusion Aggravating: Nothing Alleviating: Nothing Associated Signs and Symptoms: Positive: Memory Loss, Confusion, Seizure - Allergy/Home Medications Allergies/Adverse Reactions: Allergies Allergy/AdvReac Type Severity Reaction Status Date / Time bee venom protein (honey bee) Allergy Anaphylatic Verified 03/17/18 10:36 Shock cephalexin [From Keflex] Allergy Swelling Verified 03/17/18 10:36 phenobarbital Allergy Swelling Verified 03/17/18 10:36 phenytoin [From Dilantin] Allergy Anaphylatic Verified 03/17/18 10:36 Shock PMH/Surg Hx/FS Hx/Imm Hx Endocrine/Hematology History: Denies: Hx Sickle Cell Disease Cardiovascular History: Reports: Hx Aneurysm - brain, 1989 Denies: Hx Hypertension, Hx Myocardial Infarction Respiratory History: Reports: Hx Asthma, Hx Chronic Obstructive Pulmonary Disease (COPD) Musculoskeletal History: Reports: Hx Back Problems, Other Musculoskeletal History - surgeries to foot Sensory History: Reports: Hx Contacts or Glasses - not with her Denies: Hx Hearing Aid Opthamlomology History: Reports: Hx Contacts or Glasses - not with her Neurological History: Reports: Hx Seizures, Other Neuro Impairments/Disorders - brain aneurysm, post clipping, back surgeries Psychiatric History: Reports: Other Psychiatric Issues/Disorders - OCD - Surgical History Surgery Procedure, Year, and Place: brain aneurysm . back (3) and foot ( left) surgery Infectious Disease History: No Infectious Disease History: Denies: Traveled Outside the [place] in Last 30 Days - Family History Known Family History: Positive: Cardiac Disease, Diabetes, Other - Aneurysms Negative: Hypertension - Social History Alcohol Use: Daily Alcohol Amount: states 2 beers/day Hx Substance Use: No Substance Use Type: Reports: None Hx Tobacco Use: Yes Smoking Status (MU): Heavy Every Day Tobacco Smoker Type: Cigarettes Amount Used/How Often: states 1 pk/day, started at age 14 Review of Systems Negative: Fever Neurological: Other - POSITIVE: Seizure and Confusion All Other Systems Reviewed And Are Negative: Yes Physical Exam - Summary Physical Exam Summary: VITAL SIGNS: Reviewed. GENERAL: Patient is a well-developed and nourished female who is lying comfortable in the stretcher.Patient is not in any acute respiratory distress. HEAD AND FACE: No signs of trauma. No ecchymosis, hematomas or skull depressions. No sinus tenderness. EYES: PERRLA, EOMI x 2, No injected conjunctiva, no nystagmus. No photophobia. EARS: Hearing grossly intact. Ear canals and tympanic membranes are within normal limits. MOUTH: Oropharynx within normal limits. NECK: Supple, trachea is midline, no adenopathy, no JVD, no carotid bruit, no c- spine tenderness, neck with full ROM. No meningeal signs, no Kernig's or brudzinskis signs. CHEST: Symmetric, no tenderness at palpation LUNGS: Clear to auscultation bilaterally. No wheezing or crackles. CVS: Regular rate and rhythm, S1 and S2 present, no murmurs or gallops appreciated. ABDOMEN: Soft, non-tender. No signs of distention. No rebound no guarding, and no masses palpated. Bowel sounds are normal. EXTREMITIES: FROM in all major joints, no edema, no cyanosis or clubbing. NEURO: No acute neurological deficits. Speech is normal and follows commands. Patient is slightly unoriented. SKIN: Dry and warm GCS: 15 Triage Information Reviewed: Yes Vital Signs On Initial Exam: Initial Vitals Temp Pulse Resp BP Pulse Ox 97.4 F 83 15 141/108 97 03/19/18 09:01 03/19/18 09:01 03/19/18 09:01 03/19/18 09:01 03/19/18 09:01 Vital Signs Reviewed: Yes Diagnostics - Vital Signs Vital Signs Temp Pulse Resp BP Pulse Ox 03/19/18 09:01 97.4 F 83 15 141/108 97 - Laboratory Result Diagrams: 03/19/18 09:39 03/19/18 09:28 Lab Statement: Any lab studies that have been ordered have been reviewed, and results considered in the medical decision making process. - Radiology CXR Radiology Interpretation Completed By: Radiologist - Stigmata of obstructive lung disease. No acute pulmonary or cardiac process evident. ED PHYSICIAN REVIEWED THIS RADIOLOGY REPORT. - EKG 0913 Cardiac Rate: NL - 83 BPM EKG Rhythm: Sinus Rhythm - [address] Segment: Normal - NO ST ELEVATION EKG Comparison: No Significant Change - Same as 03/17/2018 Course/Dx - Course Assessment/Plan: This patient is a 67-year-old female with past medical history significant for cerebral aneurysm s/p clipping in 1989, seizure disorder, depression, OCD, COPD, GERD, neck surgery, foot surgery, carpal tunnel surgery, breast biopsy and hysterectomy. The patient is currently on carbamazepine ER 200 a.m. and 400 mg p.m. for seizures. The patient was admitted to the hospital on 03/17/18 due to confusion after seizure. The patient was found with low carbamazepine level therefore the patient was given carbamazepine as well as Keppra. Today the patient presents to the emergency department via ambulance with chief complaint of having a seizure. At this point the patient is confused, she is alert, but unable to give a good history. Family members are not present at this point. He since that the patient is in a postictal state. Initially the patient was placed in a water/wastewater engineer, IV access was obtained, blood work was sent. Head CT was done on 03/17/18, impression: No acute intracranial pathology. As per daughter and son-in-law, the patient was fine yesterday, however, she was not eating well. This morning after breakfast, she took her medications including carbamazepine. Then she developed a seizure which lasted for about a 30 seconds. There was a positive loss of consciousness. She did not fall to the floor since the son-in-law was able to grab her before she fell. Blood work without any significant abnormality sent for increased TSH. The carbamazepine level is therapeutic. At this time, I discussed my physical exam and findings with Dr. Roger neurology and she recommends for the patient to be admitted to the hospital services. I discussed my physical exam and findings with Dr. Thomason is from the hospital services was accepted the patient for admission. The patient is hemodynamically stable. - Differential Dx Differential Diagnoses Neuro: Positive: Seizure Disorder - Diagnoses Provider Diagnoses: Seizure - Physician Notifications Discussed Care Of Patient With: Jazlyn Mcneal Time Discussed With Above Provider: 10:15 Instructed by Provider To: Other - Recommends admission to hospitalist. Dr. Thomason called at 11:14 who stated that Bisi Jareth is on her way and ED physician can speak to her directly. B[facility] Templeton accepts patient for admission at 1124. Discharge - Sign-Out/Discharge Documenting (check all that apply): Patient Departure - ADMIT, Sign-Out Patient - B[facility] Templeton Signing out patient TO: Bisi Templeton Receiving patient FROM: Hal Dixon - Discharge Plan Condition: Stable Disposition: ADMITTED TO [facility] - Billing Disposition and Condition Condition: STABLE Disposition: Admitted to [facility] - Attestation Statements Document Initiated by Scribe: Yes Documenting Scribe: Frank Rojas Provider For Whom Scribe is Documenting (Include Credential): Hal Dixon MD Scribe Attestation: Frank Benz scribed for Hal Dixon MD on 03/19/18 at 1818. Scribe Documentation Reviewed: Yes Provider Attestation: The documentation as recorded by the Frank ortiz accurately reflects the service I personally performed and the decisions made by me, Hal Dixon MD
[2018-03-19 09:51] LABS: ABS Basophils 0 10^3/ul (0-0.2); ABS Eosinophils 0.1 10^3/ul (0-0.6); ABS Lymphocytes 1.2 10^3/ul (1.0-4.8); ABS Monocytes 0.3 10^3/ul (0-0.8); ABS Neutrophils 3.8 10^3/ul (1.5-7.7); ABS Nucleated RBC 0 10^3/ul; Eosinophil % 2.2 % (0-6); Hematocrit 38 % (35-47); Hemoglobin 13.1 g/dl (12.0-16.0); Lymphocyte % 22.3 % (25-47); Mean Corpuscular HGB Conc 34 g/dl (31-36); Mean Corpuscular Hemoglobin 32 pg (27-31); Mean Corpuscular Volume 93 fL (80-97); Nucleated Red Blood Cells % 0.1; Platelet Count 233 10^3/ul (150-450); Red Blood Count 4.11 10^6/ul (4.00-5.40); Red Cell Distribution Width 14 % (10.5-15); White Blood Count 5.5 10^3/ul (3.5-10.8)
[2018-03-19 09:56] LABS: INR 0.98 (0.77-1.02)
[2018-03-19] MEDS ORDERED: tiZANidine TAB* 2 MG PO PRN (11:33)
[2018-03-19] MEDS ORDERED: Mirtazapine TAB* 15 MG PO PRN (11:33)
[2018-03-19] MEDS ORDERED: Albuterol HFA INHALER* 8 gm MDI INH PRN (11:33)
[2018-03-19] MEDS ORDERED: ALPRAZolam TAB* 0.25 MG PO PRN (11:33)
[2018-03-19] MEDS ORDERED: Acetaminophen TAB* 325 MG PO PRN (11:37)
[2018-03-19] MEDS ORDERED: Ondansetron INJ* 2 MG/ML VIAL IV PRN (11:38)
[2018-03-19] MEDS ORDERED: carBAMazepine TAB(*) 200 MG PO SCH ×2 (12:00→21:00)
[2018-03-19] MEDS ORDERED: carBAMazepine TAB(*) 200 MG PO ONE (12:27)
[2018-03-19] MEDS: Heparin VIAL(*) 5000 UNITS/ML VIAL (FIVE THOUSAND) SUBCUT SCH ×2 (14:17→21:18)
[2018-03-19] MEDS: Nitrofurantoin Macrocrystals* 100 MG CAP PO SCH ×3 (14:17→20:41)
[2018-03-19 18:34] LABS: Urine Appearance Cloudy; Urine Blood 3+ (Negative); Urine Color Yellow; Urine Ketones Negative (Negative); Urine Protein Negative (Negative); Urine Red Blood Cell 3+(>10/hpf) (Absent); Urine Specific Gravity 1.005 (1.010-1.030); Urine Urobilinogen Negative (Negative); Urine White Blood Cell 3+(>20/hpf) (Absent)
--- NOTE | 2018-03-19 19:51 | CONS ---
CONSULTATION REPORT: DATE OF CONSULT: 03/19/18 HISTORY OF PRESENT ILLNESS: Jessi Disla is a 67-year-old woman who was discharged yesterday after admission for seizures. She has a history of aneurysm repair in 1998 complicated by right frontotemporal encephalomalacia and epilepsy. She had been in the emergency room originally on the with change in mental status and a carbamazepine level less than 2. She was given 3 mg of Ativan and 1 g of Keppra and discharged on her carbamazepine. She then returned and was admitted to hospital on the with change in mental status and was seen by Dr. Grant in consultation. It was questioned whether excessive Seroquel doses may have contributed. She was readmitted to hospital and given Keppra 1 g and watched. Her EEG showed diffuse slowing as well as some intermixed high amplitude frequencies in the right temporal region suggestive of some superimposed focal neuronal dysfunction and breach rhythm. There was occasional epileptiform discharge with spike and slow wave morphology emanating from the right temporal region. She did well in the hospital, progressively improving. She was noted to have changes in her urine which suggest a urinary tract infection. Given she was back at baseline she was discharged yesterday with medications for treatment of UTI. She also had a carbamazepine level performed, trough level at 5.6 and the dose was increased to 200 mg in the morning and 400 at night. She had been stable on 200 mg b.i.d. for many years. Her family indicates that she did not eat her lunch prior to leaving. That evening, she had coffee and had nothing else to eat. She became confused at night and had less attention to hygiene. Her daughter indicates that she usually takes a shower, and she did not do so. She also had some unusual behavior, sometimes staring off and not interacting. They thought that she was just tired. Unfortunately, she did not sleep. She did not get her carbamazepine dose until 2:30 a.m. She did not sleep through the night. Her daughter indicates she did get her 200 mg carbamazepine this morning. She thinks she may have gotten a dose of the antibiotic. This morning, she was standing when she started having generalized shaking. Her daughter's significant other held onto her, and lowered her to the ground. Her eyes were open, it lasted for 45 seconds and afterwards she was confused. There was no incontinence and no trauma. During our discussions, it came out that she has a very irregular sleeping pattern in general. PAST MEDICAL HISTORY: Jessi Disla's past medical history includes aneurysm clipping in 1998 with residual right frontotemporal encephalomalacia, OCD, anxiety, depression, GERD, insomnia, COPD. PAST SURGICAL HISTORY: Surgeries in the past include back surgery, foot surgery , and carpal tunnel repair. She has a history of breast biopsy and hysterectomy. FAMILY HISTORY: Includes mother dying in a motor vehicle accident. Father with heart attack. Sister and brother both had cerebral aneurysms, one of them dying secondary to the cerebral aneurysm bleed. SOCIAL HISTORY: On today's visit, daughter indicates that her mother is doing really well in stopping smoking and has not had any cigarettes in the last 2 weeks; however, perhaps maybe 1. When asked about alcohol use, she gets a 12 pack in the beginning every month which she tends to drink in the first part of the month, so she has not had any recently. There was excessive alcohol use in the past. REVIEW OF SYSTEMS: Positive findings on review of systems were incorporated to the HPI and past medical history. The patient was confused at this time and had no further new symptoms to offer since her discharge. PHYSICAL EXAM: Most recent vitals include the blood pressure of 149/82, respiratory rate of 16, saturation 97%, pulse of 81, temperature 97.4 degrees Fahrenheit. She had a regular cardiac rhythm. Her lungs are clear to auscultation. There is no carotid bruit. She had peripheral pulses. She knew she was at [facility] and she tended to perseverate on questions about orientation. She could not get the month and the year. She was able to add in some of the history from before admissions, but could not give me much of what happened in the last 24 hours. She had pupils that were equal and responsive to light. I got a very small view of her fundi which showed some normal vasculature. She had full extraocular movements with question of saccadic intrusions. Her facial expression was symmetric. There was no dysarthria. Her palate was upgoing. Tongue was midline. Sternocleidomastoid and trapezius were 5/5 in strength. There was normal bulk and tone. No pronator drift. She gave good strength in her upper and lower extremities ( with exception of right ulnar hand muscles noted to be weak in setting of chronic injury with forearm scar), and was able to do hbapzu-wn-[id number] and heel-to -king movements with coaching. She had no asymmetry to pinprick, cold, or light touch; however, vibration sensation was decreased in the legs with some variability, making it difficult to know accuracy. Sharp and cold were decreased to the knees bilaterally. Reflexes were 2+ and symmetric in the arms , and legs with exception of the ankles that were absent. Toes were equivocal. Gait was not tested given clinical status. LABORATORY DATA: Data includes CBC which showed normal white count, hemoglobin , hematocrit, and platelets. MCH was slightly elevated at 32. Her complete metabolic panel showed glucose that was elevated at 114, alk phos was elevated at 129, TSH was elevated at 7.6. Her carbamazepine level today was 6.8 and her urinalysis report came back this morning showing E. Coli with sensitivities listed. She did have a vitamin B12 level during last admission which was 358. IMPRESSION: A 67-year-old woman with a history of localization related epilepsy secondary to previous aneurysm with repair and residual encephalomalacia in the right frontotemporal region. She had been stable for a long time on carbamazepine 200 mg b.i.d. and clearly was destabilized this last week. Most likely, urinary tract infection caused a significant part of this destabilization and she may have had 1 dose of nitrofurantoin; she will be admitted and treated. In addition, she has very poor sleep habits and last night had insomnia for the entire night and certainly, the sleep deprivation could result in causing seizure and lowering seizure threshold. We talked about the fact that she should not be drinking caffeine in the evening, and must limit use of caffeine to only before noon. We also talked about medical regimen. It is certainly possible that her irregular hours of taking her medications may also be contributing. We talked about the 12-hour separation for the carbamazepine. More frequent dosing may be difficult for her to remember. She indicates that she did get her full dose last night and this morning and her level today was 6.8. There may be room for increase. For now, we will give her an extra 200 mg. She will be admitted with epilepsy precautions. We will check an EEG and according to her clinical course, we may need to further change her epilepsy medications. Other new findings include elevated TSH, and I appreciate hospitalist team's help in evaluation and treatment. She does have findings suggestive of peripheral neuropathy which were noted by Dr. Herrera back several years ago, as well as she tells me another doctor had noted neuropathy changes in the past. Further evaluation and treatment can be done as an outpatient. I will ask that Dr. Hensley, in our neurology team, to follow up with her tomorrow to direct further care. TIME SPENT: Over an hour was spent in patient care. [id number]/[facility] #: [id number] [facility]
[2018-03-19] MEDS: Amitriptyline TAB* 100 MG PO SCH (20:40)
[2018-03-19] MEDS: oxyCODONE SR TAB(*) 40 MG TAB.SR PO SCH (20:41)
[2018-03-19] MEDS: QUEtiapine TAB* 100 MG PO SCH (20:41)
--- NOTE | 2018-03-19 20:47 | HP ---
HOSPITAL MEDICINE HISTORY AND PHYSICAL: DATE OF ADMISSION: 03/19/18 ATTENDING PHYSICIAN: Dr. Addison Thomason * (dictation provided by Bisi Templeton NP) CHIEF COMPLAINT: Altered mental status with question of seizure. HISTORY OF PRESENT ILLNESS: Ms. Disla is a 67-year-old female with a past medical history of aneurysm repair with associated epilepsy, who originally presented to the emergency room on 03/15/18 with concern for possible seizure and altered mental status. She was evaluated at that time and discharged to home. She returned on 03/17/18 again with concern for possible seizure and altered mental status. At that time, she was admitted to the hospital. The patient was evaluated including receiving CT brain, consultation with Dr. Grant from Neurology as well as Dr. Mcneal and an EEG. It was suspected overall that her symptoms are likely more related to toxic metabolic encephalopathy and the suspected accidental overdose of her Seroquel, in which she took an extra tab in the morning. The patient was admitted overnight in our hospital and discharged on 03/18/18. The patient was seen by Neurology and confirmed to be at baseline per her family. On returning home, they stopped at [employer] to "celebrate." At that time, the patient had a large coffee. Last night, the patient was unable to sleep at all. She was up about 3 a.m. at which time she took her routine nighttime dose of Tegretol. She is reported to have been very confused. She is reported not to have eaten anything except for 2 bites of banana since about 2 a.m. yesterday. She was taking partially eaten banana and sticking it in dishwater. This morning, the patient's daughter noted that she had an episode where her body was very stiff and she was clenching her arms and not speaking consistent with her history of seizure activity and therefore they brought her back to the emergency room for evaluation. Ms. Disla is oriented today, but not able to verify much in the way of corroborating information. She denies any complaint at this time. In the emergency room, Ms. Disla had labs, which confirmed her Tegretol level was 6.8. The remainder of her labs was essentially unremarkable. The only positive review of systems Ms. Disla confirms is that she is having urinary frequency, which is new for her. PAST MEDICAL HISTORY: 1. 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 2. Depression. 3. OCD. 4. History of COPD. 5. GERD. PAST SURGICAL HISTORY: 1. History of back surgery. 2. History of foot surgery. 3. Carpal tunnel surgery. 4. History of brain aneurysm clippings x2. 5. History of breast biopsy. 6. History of hysterectomy. MEDICATIONS: No change in medications since time of discharge. She is on: 1. Tizanidine 2 mg p.o. b.i.d. 2. Oxycodone SR 40 mg p.o. b.i.d. 3. Carbamazepine 400 mg at bedtime and 200 mg in the a.m. 4. Seroquel 400 mg p.o. at bedtime. 5. Omeprazole 40 mg p.o. daily. 6. Macrobid 100 mg p.o. daily. 7. Nicotine patch daily 14 mg. 8. Naproxen 375 mg p.o. b.i.d. with meals. 9. Mirtazapine 15 mg p.o. at bedtime p.r.n. 10. Epinephrine as needed. 11. Desvenlafaxine 50 mg p.o. daily. 12. Amitriptyline 100 mg p.o. at bedtime. 13. Albuterol inhaler 2 puffs inhaled q.4 hours p.r.n. 14. Alprazolam 0.25 mg p.o. t.i.d. p.r.n. ALLERGIES: To BEE VENOM, CEPHALEXIN, PHENOBARBITAL, and PHENYTOIN. FAMILY HISTORY: Mother related to MVA and father related to heart attack. SOCIAL HISTORY: The patient is a continued long-term smoker. She reportedly drinks about 3 to 4 beers per night. There is no report of drug use. She lives with her daughter, Xochilt, at this point who is her healthcare proxy. REVIEW OF SYSTEMS: A 14-point review of systems was completed with Ms. Disla and all those not mentioned above were negative. PHYSICAL EXAMINATION GENERAL: Ms. Disla is lying in the bed. She is in no acute distress. VITAL SIGNS: Temperature 98.0, pulse rate 85, respiratory rate 15, O2 saturation 98% on room air, blood pressure 162/81. LUNGS: Clear to auscultation bilaterally with no accessory muscle use and good aeration. HEART: S1, S2. No murmur, rub, or gallop and regular. ABDOMEN: Soft, nontender with bowel sounds positive x4. EXTREMITIES: No cyanosis. No edema. NEURO: She is alert. She is oriented x3. She moves all extremities equally. There is no facial asymmetry or focal weakness. Extraocular movements are intact. SKIN: Intact. DIAGNOSTIC STUDIES/LAB DATA: WBC 5.5, hemoglobin 13.1, hematocrit 38, platelet count 233. INR 0.98. Sodium 136, potassium 3.8, chloride 105, serum bicarbonate 22, BUN 10, creatinine 0.60, glucose 114, lactic acid 0.6. TSH is 7.60, but I do note that it was normal as of 2 days ago. Carbamazepine level 6.8. Serum alcohol level less than 10. Chest x-ray showed stigmata of obstructive lung disease, no acute pulmonary or cardiac process evident. EKG shows a sinus rhythm with a heart rate of 83 and no evidence of ischemia. ASSESSMENT AND PLAN: Ms. Disla is a 67-year-old female, who returns today after discharge yesterday with concern for seizure activity. Our plans are for observation in the hospital for the followin. Uncontrolled seizures: I think that her newly uncontrolled seizure is related to multiple factors. The patient has urinary tract infection that was identified during the hospitalization. Treatment will continue with nitrofurantoin. She was also reported to have missed her dose of Tegretol last night and not taken it until the wee hours in the morning. She also has reported to have drunk a large amount of caffeine and to have not slept throughout the night. She is also under increased stress as her daughter, who also helps care for her, was in the hospital. I appreciate the consultation from Dr. Mcneal who makes note of these multiple factors and has provided education to the family about the importance of good sleep habits and taking her medication routinely on time. The plan will be for her to be observed in the hospital overnight to evaluate and monitor for any further seizure activity and to adjust any medications as would be required. 2. Chronic pain. Continue home medications. 3. Gastroesophageal reflux disease. Continue omeprazole. 4. Urinary tract infection. Continue Macrodantin. 5. Smoking disorder. Plan to offer nicotine replacement p.r.n. 6. Code status is full code. TIME SPENT: Approximately 60 minutes was spent on the admission of this patient , more than half of the time was spent with the patient at the bedside reviewing the events leading up to this hospitalization, performing the physical examination, and reviewing my plan of care. BISI TEMPLETON NP [id number]/[facility] #: [id number] PHILLY
--- NOTE | 2018-03-19 23:03 | PN ---
FOLLOWUP NOTE: DATE OF SERVICE: 03/19/18 HISTORY: Evening rounds were performed to check on clinical status. There has been some confusion noted by nursing. No seizure activity. In the room, the patient was awake, watching TV. She was in no apparent distress. She now was aware of not only where she was located but also the month and the year. She was much quicker in responding to questions. I have spoken with hospitalist team regarding her laboratory results, extra 200mg carbamazepine being given in the emergency room. For now, we are keeping her on 200 mg in the morning and 400 mg at night. If she has any breakthrough seizure activity, I would provide Keppra 1 g IV. I will ask Dr. Hensley to follow up tomorrow. Of note, in previous visits, weakness of the right hand was not mentioned. She has scarring of her right forearm which is chronic with weakness of intrinsic ulnar hand muscles including FDI and ADM. Fifteen minutes was spent in additional followup care. [id number]/[facility] #: [id number] PHILLY
[2018-03-20] MEDS: Heparin VIAL(*) 5000 UNITS/ML VIAL (FIVE THOUSAND) SUBCUT SCH ×3 (05:11→20:35)
[2018-03-20] MEDS: oxyCODONE SR TAB(*) 40 MG TAB.SR PO SCH ×2 (08:12→20:34)
[2018-03-20] MEDS: Nitrofurantoin Macrocrystals* 100 MG CAP PO SCH ×3 (08:12→16:55)
[2018-03-20] MEDS: Omeprazole CAP* 20 MG PO SCH (08:13)
[2018-03-20] MEDS: Nicotine PATCH 14 MG/24 HR* PATCH TRANSDERM SCH (08:14)
[2018-03-20] MEDS ORDERED: carBAMazepine TAB(*) 200 MG PO SCH (09:00)
[2018-03-20] MEDS: Mouth Piece, Nicotine* 1 EACH CARTRIDGE ONE ×2 (10:45→20:42)
[2018-03-20] MEDS: Nicotine Inhaler* 10 MG AMP INH PRN ×2 (10:45→20:42)
--- NOTE | 2018-03-20 16:19 | CONS ---
PROGRESS NOTE: DATE OF FOLLOWUP: 03/20/18 LOCATION: She is in room 482. HOSPITALIST: Bisi Templeton NP ADDENDUM: In reviewing her medications, mirtazapine, amitriptyline, and quetiapine could all lower seizure threshold. I believe tizanidine could also. Of the 4, I think mirtazapine is the most likely to lower seizure threshold. Given her multiple medications at night to regulate her sleep, I would recommend stopping mirtazapine. [id number]/[facility] #: [id number] PHILLY
--- NOTE | 2018-03-20 16:19 | CONS ---
ADDENDUM NOW INCLUDED ON THIS REPORT NEUROLOGY FOLLOWUP NOTE: DATE OF FOLLOWUP: 03/20/18 LOCATION: She is in room 418. HOSPITALIST: Bisi Templeton NP CHIEF COMPLAINT: Epilepsy. INTERVAL HISTORY: Since yesterday, Jessi Disla feels very well. She is asking to go home. She feels steady on her feet. She feels that she got a good night sleep. She feels that her seizures were at least to some extent due to not taking care of herself. Specifically, she was staying up late at night and drinking coffee into the evening. MEDICATIONS: Reviewed and she is on: 1. Nitrofurantoin 100 mg p.o. 4 times daily. 2. Omeprazole 40 mg p.o. q. day. 3. Oxycodone 40 mg p.o. b.i.d. 4. Quetiapine 400 mg p.o. q.h.s. 5. Carbamazepine 200 mg p.o. q.a.m. and 400 mg p.o. q.h.s. 6. Amitriptyline 100 mg p.o. q.h.s. 7. Alprazolam 0.25 mg p.o. t.i.d. p.r.n. anxiety. 8. Remeron 15 mg p.o. q.h.s. PHYSICAL EXAM: She is alert, well nourished, and well hydrated. She has been afebrile throughout her hospital stay. Blood pressure most recently 132/67, heart rate is in the 80s and seems regular. Respiratory rate is 14 and oxygen saturation is 96% on room air. Lungs are clear bilaterally. Heart is in a regular rhythm with distant tones and I do not hear any murmurs. There are no cervical bruits. Oral mucosa is moist and atraumatic. Neurological Exam: Eye movements are normal, no nystagmus. Facial musculature is symmetric. Speech is clear. Muscle tone is normal in the limbs. There is no drift of the extremities. [id number] maneuver is slow, but accurate and without tremor. Gait is cautious and slow, but independent. She is not ataxic. She is alert and oriented to person, place, and time. Memory is intact and language is fluent. DIAGNOSTIC STUDIES/LAB DATA: Notable for a toxicology screen from 03/19/18 notable for positive opiates, Keppra level 11.8, carbamazepine level 6.8. Urinalysis notable for 3+ leukocyte esterase, 3+ blood, 3+ white blood cells. Chemistry profile was unremarkable, TSH is slightly elevated at 7.6. Sodium is normal. CBC is within normal limits. Electroencephalogram from 03/17/18 interpreted as abnormal due to diffuse slowing of background activity, high amplitude intermixed frequencies in the right temporal region suggestive of neuronal dysfunction and breach rhythm. There were occasional epileptiform discharges with spike and slow wave component from the right temporal region. Brain CT scan from 03/17/18 showing no acute intracranial pathology, prior craniotomy with aneurysm repair findings. There was right inferior frontal and temporal encephalomalacia. IMPRESSION AND PLAN: Impression is that of resolution of breakthrough seizures. The initial one occurred in the setting of an undetectable carbamazepine level. Some or perhaps all of it is probably due to not taking her medications on a routine basis and not getting adequate sleep. I would recommend further increasing carbamazepine to 400 mg in the morning and 400 at night. I think she needs a bigger safety caution than just the 200 mg increase. We will not continue levetiracetam at this point unless she has recurrent seizures. She says she is going to get a pill box and take better care of herself in terms of sleep and caffeine intake. I will see her in followup in my office in a few weeks and recheck her levels. ADDENDUM: DATE OF FOLLOWUP: 03/20/18 LOCATION: She is in room 482. HOSPITALIST: Bisi Templeton NP ADDENDUM: In reviewing her medications, mirtazapine, amitriptyline, and quetiapine could all lower seizure threshold. I believe tizanidine could also. Of the 4, I think mirtazapine is the most likely to lower seizure threshold. Given her multiple medications at night to regulate her sleep, I would recommend stopping mirtazapine. [id number]/[facility] #: [id number] A- [id number]/[facility] #: [id number] [facility]
--- NOTE | 2018-03-20 19:39 | PN ---
Subjective Date of Service: 03/20/18 Interval History: sitting on the edge of the bed. No complaints of chest pain or shortness of breath. Denies abd pain n/v/d. Denies shaking or tremors. responds to questions appropriately. Family History: Unchanged from Admission Social History: Unchanged from Admission Past Medical History: Unchanged from Admission Objective Active Medications: Acetaminophen (Tylenol Tab*) 650 mg PO Q6H PRN PRN Reason: PAIN Albuterol (Ventolin Hfa Inhaler*) 2 puff INH Q4H PRN PRN Reason: SOB/WHEEZING Last Admin: 03/20/18 08:13 Dose: 2 puff Alprazolam (Xanax Tab*) 0.25 mg PO TID PRN PRN Reason: ANXIETY Amitriptyline HCl (Elavil Tab*) 100 mg PO BEDTIME [facility] Last Admin: 03/19/18 20:40 Dose: 100 mg Carbamazepine (Tegretol Tab(*)) 400 mg PO BID [facility] Heparin Sodium (Porcine) (Heparin Vial(*)) 5,000 units SUBCUT Q8HR [facility] Last Admin: 03/20/18 13:57 Dose: 5,000 units Nicotine (Nicotine Inhaler*) 10 mg INH Q2H PRN PRN Reason: CRAVING Last Admin: 03/20/18 10:45 Dose: 10 mg Nicotine (Nicotine Patch 14 Mg/24 Hr*) 1 patch TRANSDERM DAILY [facility] Last Admin: 03/20/18 08:14 Dose: 1 patch Nitrofurantoin Macrocrystals (Macrodantin*) 100 mg PO QID [facility] Last Admin: 03/20/18 16:55 Dose: 100 mg Omeprazole (Prilosec Cap*) 40 mg PO DAILY@0730 [facility] Last Admin: 03/20/18 08:13 Dose: 40 mg Ondansetron HCl (Zofran Inj*) 4 mg IV Q6H PRN PRN Reason: NAUSEA Oxycodone HCl (Oxycontin(*)) 40 mg PO BID [facility] Last Admin: 03/20/18 08:12 Dose: 40 mg Quetiapine Fumarate (Seroquel Tab*) 400 mg PO BEDTIME [facility] Last Admin: 03/19/18 20:41 Dose: 400 mg Tizanidine HCl (Zanaflex Tab*) 2 mg PO BID PRN PRN Reason: muscle spasms Vital Signs - 8 hr 11/19/18 11/19/18 14:00 15:25 Temperature 98.1 F Pulse Rate 87 Respiratory 18 18 Rate Blood Pressure 149/74 (mmHg) O2 Sat by Pulse 95 Oximetry Oxygen Devices in Use Now: None Appearance: alert, oriented x 3 , no acute distress Eyes: No Scleral Icterus Ears/Nose/Mouth/Throat: Clear Oropharnyx, Mucous Membranes Moist Neck: NL Appearance and Movements; NL JVP, Trachea Midline Respiratory: Symmetrical Chest Expansion and Respiratory Effort, Clear to Auscultation Cardiovascular: NL Sounds; No Murmurs; No JVD, No Edema Abdominal: NL Sounds; No Tenderness; No Distention Extremities: No Edema, No Clubbing, Cyanosis Skin: No Rash or Ulcers Neurological: Alert and Oriented x 3 Nutrition: Taking PO's Result Diagrams: 03/19/18 09:39 03/19/18 09:28 Microbiology and Other Data: Microbiology 03/19/18 18:10 Urine Culture - Preliminary Urine Escherichia Coli Assess/Plan/Problems-Billing Assessment: Ms. Disla is a 67 y.o female with a PMHX of epilepsy, GERD, depression,OCD, COPD who presented to the emergency room with possible seizures and altered mental status. At the last admission the patient was found to have UTI and was started on macrodantin. - Patient Problems (1) Seizure Current Visit: No Status: Acute Code(s): R56.9 - UNSPECIFIED CONVULSIONS SNOMED Code(s): 92740316 Comment: Chronic seizure disorder- patient presented with alltered mental status and possible seizure- recently dx with UTI- started on macrodantin on the - will continue macrodantin - susceptible to Ecoli withlast culture - suspect her UTI could be contributing to her increased seizures threshold - Discussed with Dr. Hensley- will observe 1 more day-given the increase of seizures- also recommended stopping remeron as this can also contribute to a lower seizure threshold - will increase tegratol to 400 mg BID (2) UTI (urinary tract infection) Current Visit: No Status: Acute Comment: - Repeat urine culture with e-coli- will continue macrodantin as it is sensitive to e-coli- in the last culture - only started on the medication on had 1 dose prior to admission - patient without urinary symptoms - afebrile (3) Depression Current Visit: No Status: Acute Code(s): F32.9 - MAJOR DEPRESSIVE DISORDER, SINGLE EPISODE, UNSPECIFIED SNOMED Code(s): 80199667 Comment: Continue seroquel (4) DVT prophylaxis Current Visit: Yes Status: Acute Code(s): LXF0884 - SNOMED Code(s): 944589879 Comment: heparin subQ (5) Full code status Current Visit: Yes Status: Acute Code(s): Z78.9 - OTHER SPECIFIED HEALTH STATUS SNOMED Code(s): 764257176 Status and Disposition: discharge home when medically stable
[2018-03-20] MEDS: carBAMazepine TAB(*) 200 MG PO SCH (20:30)
[2018-03-20] MEDS: Amitriptyline TAB* 100 MG PO SCH (20:33)
[2018-03-20] MEDS: QUEtiapine TAB* 100 MG PO SCH (20:35)
[2018-03-20] MEDS ORDERED: Mouth Piece, Nicotine* 1 EACH CARTRIDGE ONE (20:40)
[2018-03-21] MEDS: Nitrofurantoin Macrocrystals* 100 MG CAP PO SCH ×3 (00:12→13:07)
[2018-03-21] MEDS: Heparin VIAL(*) 5000 UNITS/ML VIAL (FIVE THOUSAND) SUBCUT SCH ×2 (04:38→14:34)
[2018-03-21] MEDS: oxyCODONE SR TAB(*) 40 MG TAB.SR PO SCH (08:03)
[2018-03-21] MEDS: carBAMazepine TAB(*) 200 MG PO SCH (08:03)
[2018-03-21] MEDS: Nicotine PATCH 14 MG/24 HR* PATCH TRANSDERM SCH (08:03)
[2018-03-21] MEDS: Omeprazole CAP* 20 MG PO SCH (08:03)
[2018-03-21 12:10] VITALS: BP 120/58
--- NOTE | 2018-03-21 17:31 | PN ---
Subjective Date of Service: 03/21/18 Interval History: Patient with no complaints overnight. Denies confusion. Patient continues to deny urinary symptoms. denies fever or chills, denies chest pain or shortness of breath. denies abd pain n/v/d. Family History: Unchanged from Admission Social History: Unchanged from Admission Past Medical History: Unchanged from Admission Objective Active Medications: Acetaminophen (Tylenol Tab*) 650 mg PO Q6H PRN PRN Reason: PAIN Albuterol (Ventolin Hfa Inhaler*) 2 puff INH Q4H PRN PRN Reason: SOB/WHEEZING Last Admin: 03/20/18 08:13 Dose: 2 puff Alprazolam (Xanax Tab*) 0.25 mg PO TID PRN PRN Reason: ANXIETY Last Admin: 03/20/18 20:42 Dose: 0.25 mg Amitriptyline HCl (Elavil Tab*) 100 mg PO BEDTIME [facility] Last Admin: 03/20/18 20:33 Dose: 100 mg Carbamazepine (Tegretol Tab(*)) 400 mg PO BID [facility] Last Admin: 03/21/18 08:03 Dose: 400 mg Heparin Sodium (Porcine) (Heparin Vial(*)) 5,000 units SUBCUT Q8HR [facility] Last Admin: 03/21/18 14:34 Dose: Not Given Nicotine (Nicotine Inhaler*) 10 mg INH Q2H PRN PRN Reason: CRAVING Last Admin: 03/20/18 20:42 Dose: 10 mg Nicotine (Nicotine Patch 14 Mg/24 Hr*) 1 patch TRANSDERM DAILY [facility] Last Admin: 03/21/18 08:03 Dose: 1 patch Nitrofurantoin Macrocrystals (Macrodantin*) 100 mg PO QID [facility] Last Admin: 03/21/18 13:07 Dose: 100 mg Omeprazole (Prilosec Cap*) 40 mg PO DAILY@0730 [facility] Last Admin: 03/21/18 08:03 Dose: 40 mg Ondansetron HCl (Zofran Inj*) 4 mg IV Q6H PRN PRN Reason: NAUSEA Oxycodone HCl (Oxycontin(*)) 40 mg PO BID [facility] Last Admin: 03/21/18 08:03 Dose: 40 mg Quetiapine Fumarate (Seroquel Tab*) 400 mg PO BEDTIME [facility] Last Admin: 03/20/18 20:35 Dose: 400 mg Tizanidine HCl (Zanaflex Tab*) 2 mg PO BID PRN PRN Reason: muscle spasms Vital Signs - 8 hr 03/21/18 03/21/18 10:56 12:00 Temperature 98.8 F Pulse Rate 81 Respiratory 18 Rate Blood Pressure 120/58 (mmHg) O2 Sat by Pulse 94 Oximetry Oxygen Devices in Use Now: None Appearance: appears comfortable sitting on the edge of the bed. no acute distress Eyes: No Scleral Icterus Ears/Nose/Mouth/Throat: Clear Oropharnyx, Mucous Membranes Moist Neck: NL Appearance and Movements; NL JVP, Trachea Midline Respiratory: Symmetrical Chest Expansion and Respiratory Effort, Clear to Auscultation Cardiovascular: NL Sounds; No Murmurs; No JVD, No Edema Abdominal: NL Sounds; No Tenderness; No Distention Extremities: No Edema, No Clubbing, Cyanosis Skin: No Rash or Ulcers Neurological: Alert and Oriented x 3 Nutrition: Taking PO's Result Diagrams: 03/19/18 09:39 03/19/18 09:28 Microbiology and Other Data: Microbiology 03/19/18 18:10 Urine Culture - Preliminary Urine Escherichia Coli Assess/Plan/Problems-Billing Assessment: Ms. Disla is a 67 y.o female with a PMHX of epilepsy, GERD, depression,OCD, COPD who presented to the emergency room with possible seizures and altered mental status. At the last admission the patient was found to have UTI and was started on macrodantin. - Patient Problems (1) Seizure Current Visit: No Status: Acute Code(s): R56.9 - UNSPECIFIED CONVULSIONS SNOMED Code(s): 44550326 Comment: Chronic seizure disorder- patient presented with altered mental status and possible seizure- recently dx with UTI- started on macrodantin on the - will change antibiotic to bactrim DS - as neurology report sulfa would be a safe choice - suspect her UTI could be contributing to her increased seizures threshold - Discussed with Dr. Hensley- will observe 1 more day-given the increase of seizures- also recommended stopping remeron as this can also contribute to a lower seizure threshold - will increase tegratol to 400 mg BID (2) UTI (urinary tract infection) Current Visit: No Status: Acute Comment: - Repeat urine culture with e-coli- will continue macrodantin as it is sensitive to e-coli- in the last culture - only started on the medication on had 1 dose prior to admission - patient without urinary symptoms - afebrile (3) Depression Current Visit: No Status: Acute Code(s): F32.9 - MAJOR DEPRESSIVE DISORDER, SINGLE EPISODE, UNSPECIFIED SNOMED Code(s): 72680930 Comment: Continue seroquel (4) DVT prophylaxis Current Visit: Yes Status: Acute Code(s): MVG5907 - SNOMED Code(s): 847583472 Comment: heparin subQ (5) Full code status Current Visit: Yes Status: Acute Code(s): Z78.9 - OTHER SPECIFIED HEALTH STATUS SNOMED Code(s): 870650366 Status and Disposition: discharge home when medically stable
--- NOTE | 2018-03-22 18:46 | DS ---
CC: Dr. Hensley; Dr. Cody Arias* DISCHARGE SUMMARY: DATE OF ADMISSION: 03/19/18 DATE OF DISCHARGE: 03/21/18 PROVIDER: Jesi Sullivan NP. ATTENDING PHYSICIAN: Dr. Oma Arguello* (dictated by Jesi Sullivan NP). PRIMARY CARE PROVIDER: Dr. Arias. PRIMARY DIAGNOSES: 1. Urinary tract infection with Escherichia coli bacteria. 2. Seizures. SECONDARY DIAGNOSES: 1. History of aneurysm repair with associated epilepsy. 2. Depression. 3. Obsessive compulsive disorder. 4. Chronic obstructive pulmonary disease. 5. Gastroesophageal reflux disease. STUDIES COMPLETED WHILE IN THE HOSPITAL: The patient had a chest x-ray on 03/19, radiologist's impression: Stigmata for obstructive lung disease. No acute pulmonary or cardiac process was evident. She had an electrocardiogram on 03/19/18, which showed sinus rhythm at a rate of 83. She was seen in consultation by Dr. Mcneal from Neurology. They recommended increasing her Tegretol to 400 mg p.o. b.i.d. She was also seen by Dr. Hensley. Impression is that there was a resolution of breakthrough seizures, initial one occurred in the setting of undetectable carbamazepine level some or perhaps all probably due to her not taking her medications on a routine basis and not getting adequate sleep. He recommended increasing carbamazepine to 400 mg in the morning and 400 at night. He recommended discontinuing her Keppra. He also recommended after reviewing medications to discontinue her Remeron, which was discontinued during this hospitalization. DISCHARGE MEDICATIONS: [place] Medications: 1. Tegretol 400 mg p.o. b.i.d. 2. Bactrim DS 1 tablet p.o. b.i.d. for 3 days. Continued Home Medications: 1. Zanaflex 2 mg p.o. b.i.d. 2. Oxycodone SR 40 mg p.o. b.i.d. 3. Seroquel 400 mg p.o. at bedtime. 4. Omeprazole 40 mg p.o. daily. 5. Nicotine patch, 1 patch transdermally. 6. Naproxen 375 mg p.o. b.i.d. with meals. 7. Epinephrine 0.3 IM as needed for allergic reaction. 8. Pristiq 50 mg p.o. daily. 9. Amitriptyline 100 mg p.o. at bedtime. 10. Albuterol HFA inhaler 2 puffs q. 4 hours as needed for shortness of breath. 11. Alprazolam 0.25 mg p.o. t.i.d. Discontinued Medication: Remeron. HISTORY OF PRESENT ILLNESS AND HOSPITAL COURSE: Ms. Disla is a 67-year-old female with a past medical history significant for aneurysm repair, which was associated with epilepsy, depression, OCD, COPD, and GERD, who presented to the emergency room originally on 03/15/18 with a concern of possible seizures and altered mental status. She was evaluated at that time and discharged home. She returned to the hospital on 03/17 with complaint again of possible seizures and altered mental status. At that time, she was admitted to the hospital. The patient was evaluated and received a CT of the brain and consultation by Dr. Grant from Neurology as well as Dr. Mcneal and an EEG. It was suspected overall her symptoms were likely related to toxic metabolic encephalopathy and suspected accidental overdose of her Seroquel, which she took an extra tab in the morning. The patient was admitted overnight and discharged home on . The patient was seen by Neurology and confirmed to be at baseline per her family. Upon returning home, they stopped at [facility] to celebrate. At that time, the patient had a large coffee. She did not sleep. At 3 a.m., she took her routine nighttime dose of Tegretol and reported to have been very confused. In the morning, the daughter noted that the patient had an episode where her body was very stiff and clenching her arms and not speaking consistent with her history of seizure activity, therefore she was brought back to the emergency room for evaluation. The patient was alert at the time of admission and denied any complaints. Denied any fever or chills. During the hospitalization, she had routine blood work drawn and her Tegretol level was 6.8. She was found to have urinary tract infection and was positive for E. coli bacteria. On 03/18/18, she was started on Macrodantin. She did have 1 dose prior to returning to the hospital. She was continued on Macrodantin throughout her hospitalization. Given the concern of repeat seizures during the week, I consulted Neurology for appropriate antibiotic treatment that would not lower the seizure threshold and they recommended Bactrim. The patient was placed on Bactrim DS 1 tablet p.o. b.i.d. for 3 days for treatment of her UTI. The patient had no further episodes of altered mentation or seizure activities while in the hospital. On the day of discharge, the patient has no complaints. REVIEW OF SYSTEMS: The patient denies any fever or chills. Denies any nausea, vomiting, or diarrhea. Denies any abdominal pain. Denies any chest pain or shortness of breath. Denies any dizziness or headache. Denies any shaking or tremoring. PHYSICAL EXAMINATION: General: The patient is alert and oriented, sitting on the bed, in no acute distress. HEENT: Head is atraumatic, normocephalic. Eyes : EOMs are intact. Sclerae anicteric and not pale. Neck is supple. Lungs are clear to auscultation bilaterally. No wheezes, rales, or rhonchi. Cardiac : S1, S2. Regular rate and rhythm. Abdomen is soft and nontender. Bowel sounds are present x4. Extremities: She is able to move all extremities with 5 /5 strength. Neurologic: She is alert and oriented x3. There is no gross focal deficits. At this time, Ms. Disla is stable for discharge home. Vital signs are as follows: Temperature was 98.8, heart rate was 81, respirations were 18, O2 saturation 94% on room air, blood pressure was 120/58. DISCHARGE PLAN: Ms. Disla will be discharged back home. Activity as tolerated. She should continue regular diet. 1. Seizures. Her Tegretol was increased to 400 mg p.o. b.i.d. She should have a repeat Tegretol level in 2 to 3 weeks. She should follow up with Dr. Hensley from Neurology in 3 to 4 weeks. The patient was instructed to return to the emergency room for any breakthrough seizures, changes in mentation or any other concerning symptoms. I also discontinued her Remeron as Neurology recommended discontinuing Remeron because this could lower her seizure threshold causing her to have increased seizures. 2. Urinary tract infection with E. coli bacteria. Her culture was pansensitive. Given her history of seizures and 3 seizures this week, I did consult Neurology for recommendations on appropriate antibiotics treatment, who recommended sulfa drugs. I did place her on Bactrim DS 1 tablet p.o. b.i.d. for 3 days for treatment of her UTI. 3. COPD. The patient should continue on albuterol HFA inhaler 2 puffs q.4 hours as needed for shortness of breath. 4. Chronic pain. The patient should continue on her pain medications as previously prescribed. 5. Depression. The patient should continue on Seroquel, amitriptyline, Xanax as previously prescribed. The patient was instructed to return to the emergency room for any chest pain, shortness of breath, increased seizure activity, alternations in mentation or any other concerning symptoms. The patient should follow up with Dr. Arias in 4 to 7 days. She should follow up with Neurology in 3 to 4 weeks. This is a summarization of her hospitalization. If further details are needed, please see the entire medical record. TIME SPENT: Time spent on this discharge was approximately 60 minutes, greater than half of that time was spent with the patient discussing discharge plans and instructions. CONDITION ON DISCHARGE: Stable. JESI SULLIVAN, JAVAN [id number]/[facility] #: [id number] PHILLY
== END 2018-03-21 16:45 | disposition home or self-care (01) ==
LOC: ED 08:57 → MED 11:32
PROVIDERS: ADMIT Student in an Organized Health Care Education/Training Program; ATTEND Hospitalist
DX: N39.0 Urinary tract infection, site not specified (principal); B96.20 Unspecified Escherichia coli [E. coli] as the cause of diseases classified elsewhere; R56.9 Unspecified convulsions; I72.9 Aneurysm of unspecified site; F32.9 Major depressive disorder, single episode, unspecified; F42.9 Obsessive-compulsive disorder, unspecified; J44.9 Chronic obstructive pulmonary disease, unspecified; K21.9 Gastro-esophageal reflux disease without esophagitis; R41.82 Altered mental status, unspecified; F17.210 Nicotine dependence, cigarettes, uncomplicated
CPT/HCPCS: 36415; 71046; 80053; 80156; 80307; 80320; 81003; 81015; 83605; 83735; 84443; 85025; 85610; 85730; 87077; 87086; 87186; 93005; 96372; 96374; 99284; 99406; A9270-GY; G0378; G0480; J1644

== ENCOUNTER 2018-08-05 16:30 | Emergency (ER) | payer MEDICARE, MEDICAID ==
--- NOTE | 2018-08-05 16:39 | ED ---
Allergic Reaction/Systemic - HPI Summary HPI Summary: This patient is a 68 year old F presenting to [facility] accompanied by her daughter and another woman with a chief complaint of allergic reaction due to bee sting since 30 minutes ago. Patient reports anxiety, congestion, throat tightness, wheezing, SOB, and cough. She was stung on her right arm while she was outside; the stinger was black and yellow. She is not allergic to epinephrine. The patient was crying while the epi-pen was being administered. PMHX allergy to bee stings. Vitals in the room: HR 83 bpm, BP 203/96. - History of Current Complaint Chief Complaint: EDAllergicReaction Hx Obtained From: Patient, Family/Metal [employer] - daughter Onset/Duration: Sudden Onset, Started minutes ago - 30 Timing: Constant Aggravating Factor(s): Other - bee sting Associated Signs And Symptoms: Positive: Cough Wheezing, Difficulty Breathing, Rash, Throat Tightening - Related Hx Possible Reaction To: Insect - Allergies/Home Medications Allergies/Adverse Reactions: Allergies Allergy/AdvReac Type Severity Reaction Status Date / Time bee venom protein (honey bee) Allergy Anaphylatic Verified 03/17/18 10:36 Shock cephalexin [From Keflex] Allergy Swelling Verified 03/17/18 10:36 phenobarbital Allergy Swelling Verified 03/17/18 10:36 phenytoin [From Dilantin] Allergy Anaphylatic Verified 03/17/18 10:36 Shock PMH/Surg Hx/FS Hx/Imm Hx Endocrine/Hematology History: Denies: Hx Sickle Cell Disease Cardiovascular History: Reports: Hx Aneurysm - brain, 1989 Denies: Hx Hypertension, Hx Myocardial Infarction Respiratory History: Reports: Hx Asthma, Hx Chronic Obstructive Pulmonary Disease (COPD) Musculoskeletal History: Reports: Hx Back Problems, Other Musculoskeletal History - surgeries to foot Sensory History: Reports: Hx Contacts or Glasses - not with her Denies: Hx Hearing Aid Opthamlomology History: Reports: Hx Contacts or Glasses - not with her Neurological History: Reports: Hx Seizures, Other Neuro Impairments/Disorders - brain aneurysm, post clipping, back surgeries Psychiatric History: Reports: Other Psychiatric Issues/Disorders - OCD - Surgical History Surgery Procedure, Year, and Place: brain aneurysm . back (3) and foot ( left) surgery Infectious Disease History: No Infectious Disease History: Denies: Traveled Outside the [place] in Last 30 Days - Family History Known Family History: Positive: Cardiac Disease, Diabetes, Other - Aneurysms Negative: Hypertension - Social History Alcohol Use: Daily Alcohol Amount: states 2 beers/day Hx Substance Use: No Substance Use Type: Reports: None Hx Tobacco Use: Yes Smoking Status (MU): Heavy Every Day Tobacco Smoker Type: Cigarettes Amount Used/How Often: states 1 pk/day, started at age 14 Review of Systems Positive: Nasal Discharge, Other - throat tightening Positive: Shortness Of Breath, Cough, Other - wheeze Positive: Anxious All Other Systems Reviewed And Are Negative: Yes Physical Exam - Summary Physical Exam Summary: VITAL SIGNS: Reviewed. GENERAL: Patient is a well-developed and nourished female who is lying comfortable in the stretcher. Patient is in acute respiratory distress. She cannot speak in full sentences. HEAD AND FACE: No signs of trauma. No ecchymosis, hematomas or skull depressions. No sinus tenderness. EYES: PERRLA, EOMI x 2, No injected conjunctiva, no nystagmus. EARS: Hearing grossly intact. Ear canals and tympanic membranes are within normal limits. MOUTH: She states that she feels like her throat is closing. Swelling noted in the back of the throat, gums, and soft palette. NECK: Supple, trachea is midline, no adenopathy, no JVD, no carotid bruit, no c- spine tenderness, neck with full ROM. CHEST: Symmetric, no tenderness at palpation LUNGS: Clear to auscultation bilaterally. Wheezes heard in the bilateral lumps CVS: Regular rate and rhythm, S1 and S2 present, no murmurs or gallops appreciated. ABDOMEN: Soft, non-tender. No signs of distention. No rebound no guarding, and no masses palpated. Bowel sounds are normal. EXTREMITIES: FROM in all major joints, no edema, no cyanosis or clubbing. NEURO: Alert and oriented x 3. No acute neurological deficits. Speech is normal and follows commands. SKIN: Erythema of the face and upper extremities with some hives. Triage Information Reviewed: Yes Vital Signs Reviewed: Yes Diagnostics - Laboratory Result Diagrams: 08/05/18 17:11 08/05/18 17:11 Lab Statement: Any lab studies that have been ordered have been reviewed, and results considered in the medical decision making process. - Radiology CXR Radiology Interpretation Completed By: Radiologist Summary of Radiographic Findings: No radiographic evidence for acute cardiopulmonary abnormality on this. portable chest x-ray. ED physician has reviewed this report. - EKG 17:02 Cardiac Rate: NL - 86 bpm EKG Rhythm: Sinus Rhythm ST Segment: Normal EKG Comparison: No Significant Change - 03/19/18 Re-Evaluation - Re-Evaluation First Eval Re-Evaluation Time: 17:40 Change: Improved Comment: Patient is doing much better and is currently without symptoms. Allergic Reaction Course/Dx - Course Assessment/Plan: Patient is a 68-year-old female who presents to the emergency department with respiratory distress after she was stung by a bee. The patient reports that she feels like her throat is closing, she is feeling that she is going to pass out and she is unable to speak. Immediately in the ED the patient was placed in a supply chain tech, 2 IV access was obtained and she was given epinephrine 0.3 mg IM, Solu-Medrol 125 mg, Benadryl 50 mg and Pepcid 20 mg IV. She was given IVF. She was also given racemic epi treatment. The patient is feeling better. On examination with the lungs are clear to auscultation bilaterally. The wheezing has resolved. At this time the patient is also able to speak in full sentences, and she no longer feels that her throat is closing. Vital signs are stable. Blood work without any significant abnormality except for glucose of 111, alkaline phosphatase 125 and CRP is 13.6. Urinalysis is negative for UTI. Multiple reassessment the patient continues to be stable, the patient doesnt have any shortness of breath and the lungs are clear to auscultation bilaterally. Since the patient is feeling better she has no other complaints the patient will be discharged home with follow-up with primary care physician. Patient will be given a prescription for prednisone, Benadryl, Pepcid, and an EpiPen. I discussed all the findings and test results with the patient and patients family. They were instructed to return to the emergency room immediately if any of the symptoms return or worsen. They understand and agree. Plan of care was discussed with the patient and patients family and they understands and agree. All questions were answered to patient satisfaction. There were no further complaints or concerns. Lung exam before discharge: CTA B/L. Good air exchange. No wheezing or crackles heard. CVS: S1 and S2 present. No murmurs appreciated. Patient is alert and oriented x 3. Patient is hemodynamically stable. Patient will be discharged home with follow up Dr. Arias in the next 2-3 days - Diagnoses Differential Diagnosis/HQI/PQRI: Positive: Airway Obstruction, Anaphylaxis, Local Allergic Reaction, Urticaria Provider Diagnoses: Allergic reaction - Critical Care Time Critical Care Time: 30-74 min Discharge - Sign-Out/Discharge Documenting (check all that apply): Patient Departure - discharge Patient Received Moderate/Deep Sedation with Procedure: No - Discharge Plan Condition: Stable Disposition: HOME Prescriptions: diPHENhydraMINE PO* [Benadryl PO 25 MG TAB*] 25 mg PO TID PRN #20 tab PRN Reason: Allergy Symptoms EPINEPHrine [Epipen 2-Naseem] 0.3 mg IM ONCE #1 inj predniSONE TAB* [Deltasone 20 MG TAB*] 40 mg PO DAILY #8 tab Patient Education Materials: Anaphylaxis (ED) Referrals: Cdoy Arias MD [Primary Care Provider] - 3 Days Additional Instructions: Follow up with Dr. Arias in 2-3 days, if needed. RETURN TO THE ED FOR ANY WORSENING OR NEW SYMPTOMS. - Billing Disposition and Condition Condition: STABLE Disposition: Home - Attestation Statements Document Initiated by Khanhibe: Yes Documenting Scribe: Florencio Dinero Provider For Whom Josh is Documenting (Include Credential): Hal Dixon MD Scribe Attestation: Florencio Benz, scribed for Hal Dixon MD on 08/06/18 at 0710. Scribe Documentation Reviewed: Yes Provider Attestation: The documentation as recorded by the Florencio ortiz accurately reflects the service I personally performed and the decisions made by Hal condon MD Status of Scribe Document: Viewed
[2018-08-05] MEDS ORDERED: methylPREDNISolone 125 MG* 2 ML VIAL ONE (16:40)
[2018-08-05] MEDS ORDERED: EPINEPHRINE 1 MG/ML 1 ML VIAL ONE (16:40)
[2018-08-05] MEDS ORDERED: Famotidine IV* 10 MG/ML 2 ML (20 mg) ONE (16:40)
[2018-08-05] MEDS ORDERED: diPHENhydraMINE IV* 50 MG/ML 1 ml VIAL (BENADRYL) ONE (16:40)
[2018-08-05] MEDS ORDERED: EPINEPHrine,Rac 2.25% NEB.SOL* 0.5 ML INH ONE (16:46)
[2018-08-05] MEDS ORDERED: EPINEPHrine,Rac 2.25% NEB.SOL* 0.5 ML ONE (16:47)
[2018-08-05] MEDS ORDERED: NS 0.9% 1000 ML** 1,000 ML IV.FLUID IV ONE (16:48)
[2018-08-05] MEDS ORDERED: NS 0.9% 1000 ML** 1,000 ML IV ONE (16:53)
[2018-08-05 17:19] LABS: ABS Basophils 0 10^3/ul (0-0.2); ABS Eosinophils 0.3 10^3/ul (0-0.6); ABS Lymphocytes 3.3 10^3/ul (1.0-4.8); ABS Monocytes 0.6 10^3/ul (0-0.8); ABS Neutrophils 3.2 10^3/ul (1.5-7.7); ABS Nucleated RBC 0 10^3/ul; Eosinophil % 3.4 %; Hematocrit 38 % (33-41); Hemoglobin 12.8 g/dL (12.0-16.0); Lymphocyte % 44.8 %; Mean Corpuscular HGB Conc 34 g/dL (31-36); Mean Corpuscular Hemoglobin 31 pg (27-31); Mean Corpuscular Volume 93 fL (80-97); Mean Platelet Volume 7.7 fL (7.4-10.4); Nucleated Red Blood Cells % 0; Platelet Count 232 10^3/uL (150-450); Red Cell Distribution Width 15 % (10.5-15); White Blood Count 7.4 10^3/uL (3.5-10.8)
[2018-08-05 17:35] LABS: Albumin 4.1 g/dL (3.2-5.2); Albumin/Globulin Ratio 1.5 (1-3); BUN/Creatinine Ratio 16.4 (8-20); C Reactive Protein 13.68 mg/L (<8.01); Calcium 8.7 mg/dL (8.6-10.3); EGFR African American 133.4 (>60); EGFR Non-African American 110.2 (>60); Globulin 2.8 g/dL (2-4); Potassium 3.9 mmol/L (3.5-5.0); Total Bilirubin 0.2 mg/dL (0.2-1.0); Total Protein 6.9 g/dL (6.4-8.9)
[2018-08-05 17:45] LABS: Urine Appearance Clear; Urine Bacteria Absent (Absent); Urine Bilirubin Negative (Negative); Urine Blood 1+ (Negative); Urine Color Straw; Urine Glucose Negative (Negative); Urine Ketones Negative (Negative); Urine Nitrite Negative (Negative); Urine Protein Negative (Negative); Urine Red Blood Cell Trace(0-2/hpf) (Absent); Urine Specific Gravity 1.004 (1.010-1.030); Urine Squamous Epithelial Cell Present (Absent); Urine Urobilinogen Negative (Negative); Urine White Blood Cell Absent (Absent)
[2018-08-05] MEDS ORDERED: carBAMazepine TAB(*) 200 MG PO ONE (18:11)
[2018-08-05 20:49] VITALS: BP 185/95
== END 2018-08-05 20:48 | disposition home or self-care (01) ==
LOC: ED 16:30
DX: T63.441A Toxic effect of venom of bees, accidental (unintentional), initial encounter (principal); Y92.9 Unspecified place or not applicable; F17.210 Nicotine dependence, cigarettes, uncomplicated
CPT/HCPCS: 36415; 71045; 80053; 81003; 81015; 85025; 86140; 93005; 96360; 96361; 99285; A9270-GY; J1200; J2930

== ENCOUNTER → 2018-11-30 11:46 | Emergency (ER) | payer MEDICARE, MEDICAID ==
[~2018-11-30 11:46] MED LIST: methylPREDNISolone 125 MG* 2 ML VIAL IV ONE
--- NOTE | 2018-11-30 11:58 | ED ---
Allergic Reaction/Systemic - HPI Summary HPI Summary: A 68 y/o female brought in by [facility] ambulance presents to [facility] with a chief complaint of a possible allergic reaction for the past 2-3 days. The patient has redness around her eyes and on a spot on her left arm, and states that it itches. She denies any pain, rating her pain as a 0/10 in severity. She was not given anything by EMS en route. She says that her eyelids "sort of" were stuck together in the morning. She denies any difficulty swallowing or breathing. - History of Current Complaint Time Seen by Provider: 11/30/18 11:51 Hx Obtained From: Patient, EMS Onset/Duration: Sudden Onset, Started days ago, Still Present Timing: Constant, Lasting Days Severity Initially: Mild Severity Currently: Mild Pain Intensity: 0 Pain Scale Used: 0-10 Numeric Location: Other - face Character: Swelling, Pruritus Aggravating Factor(s): Nothing Alleviating Factor(s): Nothing Associated Signs And Symptoms: Negative: Difficulty Breathing, Throat Tightening - Allergies/Home Medications Allergies/Adverse Reactions: Allergies Allergy/AdvReac Type Severity Reaction Status Date / Time bee venom protein (honey bee) Allergy Anaphylatic Verified 03/17/18 10:36 Shock cephalexin [From Keflex] Allergy Anaphylatic Verified 11/30/18 12:01 Shock ferrous sulfate Allergy Unknown Verified 11/30/18 12:01 Reaction Details phenobarbital Allergy Swelling Verified 03/17/18 10:36 phenytoin [From Dilantin] Allergy Anaphylatic Verified 03/17/18 10:36 Shock povidone-iodine Allergy Swelling Verified 11/30/18 12:01 [From Betadine] Of Face,Lips,& Throat soap [From Betadine] Allergy Swelling Verified 11/30/18 12:01 Of Face,Lips,& Throat Home Medications: Home Medications ALPRAZolam TAB* [Xanax TAB*] 0.5 mg PO TID PRN 11/30/18 [History Confirmed 11/30] Albuterol Sulfate [Proventil Hfa] 2 puff IH SEE INSTRUCTIONS PRN 11/30/18 [ History Confirmed 11/30/18] Amlodipine Besylate [Norvasc] 5 mg PO DAILY 11/30/18 [History Confirmed 11/30/18 ] Aspirin [Adult Aspirin Regimen] 81 mg PO DAILY 11/30/18 [History Confirmed 11/30] Atorvastatin Calcium [Lipitor] 40 mg PO DAILY 11/30/18 [History Confirmed ] Clopidogrel Bisulfate [Plavix] 75 mg PO DAILY 11/30/18 [History Confirmed ] Clopidogrel Bisulfate [Plavix] 75 mg PO DAILY 11/30/18 [History Confirmed ] Desvenlafaxine Succinate [Desvenlafaxine ER] 100 mg PO DAILY 11/30/18 [History Confirmed 11/30/18] Furosemide 20 mg PO DAILY 11/30/18 [History Confirmed 11/30/18] Metoprolol Tartrate TAB* [Lopressor TAB*] 50 mg PO DAILY 11/30/18 [History Confirmed 11/30/18] Oxycodone TAB(NF) [Oxycodone HCl 10 MG] 10 mg PO Q4HR 11/30/18 [History Confirmed 11/30/18] Pantoprazole Sodium [Protonix] 20 mg PO DAILY 11/30/18 [History Confirmed ] Piperacillin Sodium/Tazobactam [Zosyn 4.5 Gram Vial] 4.5 gm IV Q8HR 11/30/18 [ History Confirmed 11/30/18] amLODIPine TAB* [Norvasc 5 mg TAB*] 5 mg PO DAILY 11/30/18 [History Confirmed ] oxyCODONE SR TAB(*) [Oxycontin 40 mg (*)] 40 mg PO BID 11/30/18 [History Confirmed 11/30/18] oxyCODONE SR TAB(*) [Oxycontin 40 mg (*)] 40 mg PO Q12HR 11/30/18 [History Confirmed 11/30/18] tiZANidine TAB* [Zanaflex TAB*] 2 mg PO DAILY 11/30/18 [History Confirmed ] PMH/Surg Hx/FS Hx/Imm Hx Endocrine/Hematology History: Denies: Hx Sickle Cell Disease Cardiovascular History: Reports: Hx Aneurysm - brain, 1989 Denies: Hx Hypertension, Hx Myocardial Infarction Respiratory History: Reports: Hx Asthma, Hx Chronic Obstructive Pulmonary Disease (COPD) Musculoskeletal History: Reports: Hx Back Problems, Other Musculoskeletal History - surgeries to foot Sensory History: Reports: Hx Contacts or Glasses - not with her Denies: Hx Hearing Aid Opthamlomology History: Reports: Hx Contacts or Glasses - not with her Neurological History: Reports: Hx Seizures, Other Neuro Impairments/Disorders - brain aneurysm, post clipping, back surgeries Psychiatric History: Reports: Other Psychiatric Issues/Disorders - OCD - Surgical History Surgery Procedure, Year, and Place: brain aneurysm . back (3) and foot ( left) surgery - Family History Known Family History: Positive: Cardiac Disease, Diabetes, Other - Aneurysms Negative: Hypertension - Social History Alcohol Use: Daily Alcohol Amount: states 2 beers/day Hx Substance Use: No Substance Use Type: Reports: None Hx Tobacco Use: Yes Smoking Status (MU): Heavy Every Day Tobacco Smoker Type: Cigarettes Amount Used/How Often: states 1 pk/day, started at age 14 Review of Systems Negative: Fever ENT: Negative - difficulty swallowing Negative: Shortness Of Breath Positive: Other - positive: redness and itching around eyes and spot on left arm All Other Systems Reviewed And Are Negative: Yes Physical Exam - Summary Physical Exam Summary: Appearance: The patient is well-nourished in no acute distress and in no acute pain. Skin: swelling and erythema bilateral upper face, mildly in lower face and on her forehead. HEENT: The head is normocephalic and atraumatic. The pupils are equal and reactive. The conjunctivae are clear and without drainage. Nares are patent and without drainage. Mouth reveals moist mucous membranes and the throat is without erythema and exudate. The external ears are intact. The ear canals are patent and without drainage. The tympanic membranes are intact. Neck: The neck is supple with full range of motion and non-tender. There are no carotid bruits. There is no neck vein distension. Respiratory: Chest is non-tender. Lungs are clear to auscultation and breath sounds are symmetrical and equal. Cardiovascular: Heart is regular rate and rhythm. There is no murmur or rub auscultated. There is no peripheral edema and pulses are symmetrical and equal. Abdomen: The abdomen is soft and non-tender. There are normal bowel sounds heard in all four quadrants and there is no organomegaly palpated. Musculoskeletal: There is no back tenderness noted. Extremities are non-tender with full range of motion. There is good capillary refill. There is no peripheral edema or calf tenderness elicited. Neurological: Patient is alert and oriented to person, place and time. The patient has symmetrical motor strength in all four extremities. Cranial nerves are grossly intact. Deep tendon reflexes are symmetrical and equal in all four extremities. Psychiatric: The patient has an appropriate affect and does not exhibit any anxiety or depression. Triage Information Reviewed: Yes Vital Signs Reviewed: Yes Allergic Reaction Course/Dx - Course Course Of Treatment: Ms. Disla presented with several days of swelling in her face with erythema and itchiness. It started on her for head and is currently in her upper face and down a little bit into her lower face. She states that her eyes of been running a little bit but not very much and don't feel irritated. They are not matted shut in the morning. She's not had any new medications and has not been using any eyedrops. She does not work contacts. She denied any other difficulties such as shortness of breath or difficulty swallowing. It's unclear exactly what caused this reaction but it does look to be allergic. I don't think there is an infectious process. I gave her some systemic steroid and observed her for a period of time. - Diagnoses Provider Diagnoses: Allergic reaction Discharge - Sign-Out/Discharge Documenting (check all that apply): Patient Departure - DC Patient Received Moderate/Deep Sedation with Procedure: No - Discharge Plan Condition: Stable Disposition: HOME Prescriptions: methylPREDNISolone [Medrol Dosepak 4 MG*] 4 mg PO .SEE TANI INSTRUCTION #1 tab Patient Education Materials: General Allergic Reaction (ED) Referrals: Cody Arias MD [Primary Care Provider] - (2-3 days) Additional Instructions: Follow up with your PCP in 2-3 days. Return to the emergency department if you experience any new or worsening symptoms. - Billing Disposition and Condition Condition: STABLE Disposition: Home - Attestation Statements Document Initiated by Scribe: Yes Documenting Scribe: Vishal Boudreaux Provider For Whom Josh is Documenting (Include Credential): James Allen MD Scribe Attestation: IVishal, scribed for James Allen MD on 11/30/18 at 2036. Scribe Documentation Reviewed: Yes Provider Attestation: The documentation as recorded by the Vishal ortiz accurately reflects the service I personally performed and the decisions made by me, James Allen MD Status of Scribe Document: Viewed
[2018-11-30 14:34] VITALS: BP 145/75
== END | disposition home or self-care (01) ==
LOC: ED 11:46
DX: T78.40XA Allergy, unspecified, initial encounter (principal); X58.XXXA Exposure to other specified factors, initial encounter; Y92.9 Unspecified place or not applicable; Z88.1 Allergy status to other antibiotic agents; Z88.2 Allergy status to sulfonamides; Z88.8 Allergy status to other drugs, medicaments and biological substances; Z79.01 Long term (current) use of anticoagulants; Z79.899 Other long term (current) drug therapy; Z79.891 Long term (current) use of opiate analgesic; J44.9 Chronic obstructive pulmonary disease, unspecified; F17.210 Nicotine dependence, cigarettes, uncomplicated
CPT/HCPCS: 96374; 99283; J2930

== ENCOUNTER 2019-10-09 10:21 | Inpatient (IN) ==
[~2019-10-09 10:21] MED LIST changes: +Albuterol/Ipratropium NEB.SOL (2.5/0.5 MG) 3 ML NEB.SOLN ONE; +Rocuronium 50 mg VIAL 10 mg/ml 5 ml VIAL (50 mg) ONE; +Succinylcholine 200 mg VIAL 20 mg/ml 10 ml VIAL (200 mg) ONE; -methylPREDNISolone 125 MG* 2 ML VIAL IV ONE
[2019-10-09] MEDS ORDERED: Albuterol/Ipratropium NEB.SOL (2.5/0.5 MG) 3 ML NEB.SOLN INH ONE (10:30)
[2019-10-09] MEDS ORDERED: methylPREDNISolone 125 mg 2 ML VIAL IV ONE (10:30)
[2019-10-09 10:46] LABS: ABS Eosinophils 0.1 10^3/ul (0-0.6); ABS Lymphocytes 1.3 10^3/ul (1.0-4.8); ABS Monocytes 0.3 10^3/ul (0-0.8); Hematocrit 38 % (35-47); Lymphocyte % 13.1 %; Mean Corpuscular HGB Conc 34 g/dL (31-36); Mean Corpuscular Hemoglobin 33 pg (27-31); Mean Corpuscular Volume 98 fL (80-97); Mean Platelet Volume 7.9 fL (7.4-10.4); Platelet Count 221 10^3/uL (150-450); Red Cell Distribution Width 15 % (10-15); White Blood Count 10.3 10^3/uL (3.5-10.8)
[2019-10-09 10:59] LABS: ALT 16 U/L (7-52); AST 23 U/L (13-39); Albumin 4.2 g/dL (3.2-5.2); Albumin/Globulin Ratio 1.5 (1-3); Alkaline Phosphatase 129 U/L (34-104); BUN/Creatinine Ratio 12.4 (8-20); Blood Urea Nitrogen 12 mg/dL (6-24); CO2 Carbon Dioxide 24 mmol/L (22-32); Calcium 8.8 mg/dL (8.6-10.3); Chloride 100 mmol/L (101-111); EGFR African American 69.1 (>60); EGFR Non-African American 57.1 (>60); Globulin 2.8 g/dL (2-4); Glucose 217 mg/dL (70-100); Magnesium 2.2 mg/dL (1.9-2.7); Sodium 132 mmol/L (135-145)
[2019-10-09] MEDS ORDERED: Iodixanol (CONTRAST) 320 MG/ML 100 ML SDV IV ONE (11:04)
[2019-10-09 11:05] LABS: Anion Gap 8 mmol/L (2-11); Potassium 5.1 mmol/L (3.5-5.0)
[2019-10-09 12:03] LABS: Alcohol, S < 10 mg/dL (<10)
[2019-10-09] MEDS ORDERED: Al Hydrox/Mg Hydrox/Simet LIQ 30 ML UDC PO PRN (14:56)
[2019-10-09] MEDS ORDERED: Albuterol/Ipratropium NEB.SOL (2.5/0.5 MG) 3 ML NEB.SOLN INH PRN (15:00)
[2019-10-09] MEDS ORDERED: NS 0.9% 1000 ml BAG 1,000 ML IV ONE (15:02)
[2019-10-09] MEDS: Naloxone 0.4 mg VIAL 0.4 mg/ml 1 ml VIAL IV PUSH PRN ×4 (18:25→22:34)
[2019-10-09] MEDS: Enoxaparin 40 MG/0.4 ML SYR(*) SUBCUT SCH (18:30)
[2019-10-09] MEDS: CARBAMAZEPINE 200 MG PO SCH (22:42)
[2019-10-09] MEDS ORDERED: Ondansetron 4 mg VIAL 2 MG/ML 2 ml VIAL IV PRN (22:48)
[2019-10-10] MEDS: Naloxone 0.4 mg VIAL 0.4 mg/ml 1 ml VIAL IV PUSH PRN ×2 (00:02→03:16)
[2019-10-10 01:57] LABS: Urine Benzodiazepine Screen Presumptive Positive (None Detect); Urine Opiates Screen Presumptive Positive (None Detect)
[2019-10-10 06:27] LABS: Calcium 8.8 mg/dL (8.6-10.3); EGFR African American 86.3 (>60); EGFR Non-African American 71.3 (>60); Potassium 4.5 mmol/L (3.5-5.0)
[2019-10-10] MEDS: CARBAMAZEPINE 200 MG PO SCH ×2 (08:43→20:36)
[2019-10-10] MEDS: CMCS:Desvenlafaxine 50 mg TAB (NF) PO SCH (08:43)
[2019-10-10] MEDS: Aspirin EC 81 mg TAB.EC (enteric coated) PO SCH (08:43)
[2019-10-10] MEDS: Enoxaparin 40 MG/0.4 ML SYR(*) SUBCUT SCH (15:19)
[2019-10-10] MEDS ORDERED: NS 0.9% 1000 ml BAG 1,000 ML IV SCH (20:15)
[2019-10-10] MEDS ORDERED: Iodixanol (CONTRAST) 320 MG/ML 100 ML SDV IV ONE (22:53)
[2019-10-11 00:37] LABS: Urine Appearance Clear; Urine Bilirubin Negative (Negative); Urine Blood 3+ (Negative); Urine Color Yellow; Urine Glucose Negative (Negative); Urine Ketones 2+ (Negative); Urine Nitrite Negative (Negative); Urine Protein Negative (Negative); Urine Specific Gravity 1.053 (1.010-1.030); Urine Urobilinogen Negative (Negative)
[2019-10-11 00:47] LABS: Urine Bacteria Absent (Absent); Urine Red Blood Cell 3+(>10/hpf) (Absent); Urine Squamous Epithelial Cell Present (Absent); Urine White Blood Cell Trace(0-5/hpf) (Absent)
[2019-10-11] MEDS ORDERED: levETIRAcetam 1000MG IVPREMIX 1,000 MG/100 ML BAG IVPB ONE (00:51)
[2019-10-11 05:27] LABS: ABS Lymphocytes 0.8 10^3/ul (1.0-4.8); ABS Monocytes 0.7 10^3/ul (0-0.8); Eosinophil % 0.1 %; Hematocrit 35 % (35-47); Hemoglobin 11.7 g/dL (12.0-16.0); Lymphocyte % 7.5 %; Mean Corpuscular HGB Conc 34 g/dL (31-36); Mean Corpuscular Hemoglobin 33 pg (27-31); Mean Corpuscular Volume 98 fL (80-97); Mean Platelet Volume 7.8 fL (7.4-10.4); Platelet Count 193 10^3/uL (150-450); Red Blood Count 3.52 10^6 /uL (3.70-4.87); Red Cell Distribution Width 15 % (10-15); White Blood Count 10.8 10^3/uL (3.5-10.8)
[2019-10-11 05:49] LABS: Albumin 3.7 g/dL (3.2-5.2); Albumin/Globulin Ratio 1.4 (1-3); Calcium 8.5 mg/dL (8.6-10.3); EGFR African American 167.7 (>60); EGFR Non-African American 138.6 (>60); Globulin 2.6 g/dL (2-4); Magnesium 1.9 mg/dL (1.9-2.7); Phosphorus 2.2 mg/dL (2.5-5.0); Potassium 4.3 mmol/L (3.5-5.0); Total Bilirubin 0.3 mg/dL (0.2-1.0); Total Protein 6.3 g/dL (6.4-8.9)
[2019-10-11] MEDS: CARBAMAZEPINE 200 MG PO SCH ×3 (07:06→20:09)
[2019-10-11] MEDS: CMCS:Desvenlafaxine 50 mg TAB (NF) PO SCH ×2 (07:06→11:53)
[2019-10-11] MEDS: Aspirin EC 81 mg TAB.EC (enteric coated) PO SCH ×2 (07:06→11:54)
[2019-10-11] MEDS ORDERED: Lorazepam PYXIS KEY PRN (10:15)
[2019-10-11] MEDS ORDERED: LORazepam 2 mg VIAL 1 ml IV PUSH ONE (10:15)
[2019-10-11] MEDS ORDERED: Lorazepam PYXIS KEY ONE ×2 (10:16→12:40)
[2019-10-11] MEDS ORDERED: LORazepam 2 mg VIAL 1 ml ONE ×3 (10:16→12:40)
[2019-10-11] MEDS ORDERED: LEVETIRACETAM 500 MG IV ONE (11:00)
[2019-10-11] MEDS ORDERED: IVPREM IV ONE (11:00)
[2019-10-11] MEDS: Lactulose 30 ml UDC NG TUBE SCH ×2 (13:19→20:09)
[2019-10-11] MEDS: Enoxaparin 40 MG/0.4 ML SYR(*) SUBCUT SCH (13:23)
[2019-10-11] MEDS: ACYCLOVIR IVPB SCH ×2 (13:40→21:33)
[2019-10-11] MEDS: NS 0.9% IVPB SCH ×2 (13:40→21:33)
[2019-10-11] MEDS ORDERED: Thiamine 100 MG/ML 2 ml VIAL (200 mg) IV SCH (17:00)
[2019-10-11] MEDS: Thiamine IV 100 MG in NS 0.9% 50 ML Q24H IV SCH (17:18)
[2019-10-11] MEDS ORDERED: Potassium & Sodium Phos 250 mg = 1 PACKET PO ONE ×2 (17:38→21:00)
[2019-10-12] MEDS: NS 0.9% 1000 ml BAG 1,000 ML IV SCH ×2 (02:59→20:23)
[2019-10-12 04:39] LABS: ABS Eosinophils 0.1 10^3/ul (0-0.6); ABS Lymphocytes 0.9 10^3/ul (1.0-4.8); ABS Monocytes 0.7 10^3/ul (0-0.8); Eosinophil % 0.6 %; Hematocrit 33 % (35-47); Hemoglobin 11.3 g/dL (12.0-16.0); Mean Corpuscular HGB Conc 34 g/dL (31-36); Mean Corpuscular Hemoglobin 33 pg (27-31); Mean Corpuscular Volume 97 fL (80-97); Mean Platelet Volume 7.6 fL (7.4-10.4); Platelet Count 177 10^3/uL (150-450); Red Blood Count 3.39 10^6 /uL (3.70-4.87); Red Cell Distribution Width 15 % (10-15); White Blood Count 9.1 10^3/uL (3.5-10.8)
[2019-10-12 04:56] LABS: Albumin 3.5 g/dL (3.2-5.2); Albumin/Globulin Ratio 1.4 (1-3); BUN/Creatinine Ratio 16.7 (8-20); Calcium 8.6 mg/dL (8.6-10.3); EGFR African American 181.6 (>60); Globulin 2.5 g/dL (2-4); Magnesium 1.9 mg/dL (1.9-2.7); Phosphorus 1.9 mg/dL (2.5-5.0); Potassium 3.7 mmol/L (3.5-5.0); Total Bilirubin 0.4 mg/dL (0.2-1.0)
[2019-10-12] MEDS: NS 0.9% IVPB SCH ×2 (05:44→12:59)
[2019-10-12] MEDS: ACYCLOVIR IVPB SCH ×2 (05:44→12:59)
[2019-10-12] MEDS ORDERED: LORazepam 2 mg VIAL 1 ml IV PUSH ONE (07:47)
[2019-10-12] MEDS ORDERED: Lorazepam PYXIS KEY PRN ×2 (07:47→09:02)
[2019-10-12] MEDS ORDERED: Lorazepam PYXIS KEY ONE ×2 (07:48→18:15)
[2019-10-12] MEDS ORDERED: LORazepam 2 mg VIAL 1 ml ONE ×2 (07:49→18:15)
[2019-10-12] MEDS: CMCS:Desvenlafaxine 50 mg TAB (NF) PO SCH (07:55)
[2019-10-12] MEDS: Lactulose 30 ml UDC NG TUBE SCH ×2 (07:55→12:52)
[2019-10-12] MEDS: CARBAMAZEPINE 200 MG PO SCH (07:55)
[2019-10-12] MEDS: Aspirin EC 81 mg TAB.EC (enteric coated) PO SCH (07:55)
[2019-10-12] MEDS ORDERED: Potassium Phosphate IV 15 MMOLE in NS 0.9% 250 ml 250 ML IVPB ONE (08:14)
[2019-10-12] MEDS: Thiamine IV 100 MG in NS 0.9% 50 ML Q24H IV SCH (08:15)
[2019-10-12] MEDS ORDERED: levETIRAcetam 1000MG IVPREMIX 1,000 MG/100 ML BAG IVPB SCH (09:06)
[2019-10-12] MEDS: LORazepam 2 mg VIAL 1 ml IV PUSH SCH ×3 (10:35→18:25)
[2019-10-12] MEDS ORDERED: Valproic Acid IV(*) 100 MG/ML 5 ML VIAL (500 MG) IVPB ONE (13:28)
[2019-10-12] MEDS ORDERED: NS 0.9% IVPB ONE (14:00)
[2019-10-12] MEDS ORDERED: VALPROIC ACID IVPB ONE (14:00)
[2019-10-12] MEDS: Enoxaparin 40 MG/0.4 ML SYR(*) SUBCUT SCH (14:56)
[2019-10-12 20:01] VITALS: BP 150/74
[2019-10-12] MEDS ORDERED: Valproic Acid IV(*) 500 MG in NS 0.9% 100 ml BAG 100 ML IVPB SCH (21:00)
[2019-10-12] MEDS ORDERED: Valproic Acid IV(*) 100 MG/ML 5 ML VIAL (500 MG) IVPB SCH (21:00)
== END 2019-10-12 21:00 | disposition short-term general hospital (02) | DRG 917 ==
LOC: MEDTELE 10:21 → ED 10:21 → INTOOBSV 14:56 → OBSVTOIN 14:56 → ICU 20:16
PROVIDERS: ADMIT Internal Medicine; ATTEND Surgery Surgical Critical Care